=== PATIENT | female | born 1990 | race Caucasian/White ===

== ENCOUNTER 2017-10-28 18:53 | Emergency (ER) | payer SELFPAY ==
--- NOTE | 2017-10-28 19:44 | ER ---
Nurse's Notes [facility] Name: Raquel Sim Age: 27 yrs Sex: Female : 1990 Arrival Date: 10/28/2017 Time: 18:58 Bed 16 Private MD: None, None Diagnosis: Cutaneous abscess of buttock Presentation: 10/28 19:11 Presenting complaint: Patient states: Multiple abscesses to bilateral posterior thighs aj for 8 days. Transition of care: patient was not received from another setting of care. Onset of symptoms was October 20, 2017. Risk Assessment: Do you want to hurt yourself or someone else? Patient reports no desire to harm self or others. Initial Sepsis Screen: Does the patient meet any 2 criteria? HR > 90 bpm. Does the patient have a suspected source of infection? No. Patient's initial sepsis screen is negative. Care prior to arrival: None. 19:11 Method Of Arrival: Ambulatory aj 19:11 Acuity: DUANE 3 aj Triage Assessment: 19:12 General: Appears in no apparent distress. comfortable, Behavior is calm, cooperative, aj appropriate for age. Pain: Complains of pain in right hamstring and left hamstring. Neuro: Level of Consciousness is awake, alert, obeys commands, Oriented to person, place, time, situation, Appropriate for age. Respiratory: Airway is patent Respiratory effort is even, unlabored, Respiratory pattern is regular, symmetrical. Derm: Skin is intact, is healthy with good turgor, Skin is pink, warm \T\ dry. normal, Abscess located on right hamstring and left hamstring is quarter sized, was lanced by patient prior to arrival. 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 - Social history:: Smoking status: Patient/guardian denies using tobacco. - Ebola Screening: : Patient negative for fever greater than or equal to 101.5 degrees Fahrenheit, and additional compatible Ebola Virus Disease symptoms Patient denies exposure to infectious person Patient denies travel to an Ebola-affected area in the 21 days before illness onset No symptoms or risks identified at this time. Screenin:06 Abuse screen: Denies threats or abuse. Nutritional screening: No deficits noted. ea Tuberculosis screening: No symptoms or risk factors identified. Fall Risk None identified. Assessment: 19:57 General: Appears in no apparent distress. Behavior is calm, cooperative, appropriate ea for age. Pain: Denies pain. Neuro: Level of Consciousness is awake, alert, obeys commands, Oriented to person, place, time, situation. Cardiovascular: Patient's skin is warm and dry. Respiratory: Airway is patent Respiratory effort is even, unlabored, Respiratory pattern is regular, symmetrical. Derm: Abscess located on right hamstring and left hamstring is nickel sized, has no drainage, is red, is raised. 20:07 Reassessment: Patient and/or family updated on plan of care and expected duration. Pain ea level reassessed. Patient is alert, oriented x 3, equal unlabored respirations, skin warm/dry/pink. Discharge instructions given to patient, verbalized the understanding of instruction. Vital Signs: 19:12 BP 159 / 80; Pulse 100; Resp 20; Temp 99.9; Pulse Ox 98% on R/A; Weight 94.35 kg; aj Height 5 ft. 0 in. (152.40 cm); 20:08 BP 138 / 70; Pulse 90; Resp 18; Temp 98.7; Pulse Ox 100% ; ea 19:12 Body Mass Index 40.62 (94.35 kg, 152.40 cm) aj ED Course: 18:58 Patient arrived in ED. mr 18:58 None, None is Private Physician. mr 19:08 Feliz Arellano MD is Attending Physician. ps1 19:12 Triage completed. aj 19:12 Arm band placed on left wrist. Patient placed in an exam room. aj 19:17 Lor Stephens, RN is Primary Nurse. ea 19:30 Patient has correct armband on for positive identification. Bed in low position. Call ea light in reach. Side rails up X 1. 20:09 No provider procedures requiring assistance completed. IV discontinued, intact, ea bleeding controlled, No redness/swelling at site. Pressure dressing applied. 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 Exp: ea 11/29/2018. Lot #: [id number]. } Route: IM; Site: right deltoid; 20:07 Follow up: Response: No adverse reaction ea Outcome: 19:43 Discharge ordered by . ps1 20:08 Discharged to home ambulatory, with friend. ea 20:08 Condition: improved 20:08 Discharge instructions given to patient, Instructed on discharge instructions, follow up and referral plans. medication usage, Demonstrated understanding of instructions, follow-up care, medications, Prescriptions given X 4. 20:09 Patient left the ED. ea Signatures: Taylor Glover, Laura Amaya RN, Elena RN Feliz Buckley ea, MD MD ps1
--- NOTE | 2017-10-28 19:44 | EDPHYS ---
Physician Documentation [facility] Name: Raquel Sim Age: 27 yrs Sex: Female : 1990 Arrival Date: 10/28/2017 Time: 18:58 Bed 16 Private MD: None, None ED Physician Feliz Arellano HPI: 10/28 19:36 This 27 yrs old Female presents to ER via Ambulatory with complaints of ps1 Abscess. 19:36 patient got bit by insects a week a go and they became inflamed and then infected. She ps1 has 3 abscesses on the gluteal cleft bilaterally and lateral left posterior leg. They are red and inflamed. 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 They are painful and draining. Tetanus not UTD. . 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 - Social history:: Smoking status: Patient/guardian denies using tobacco. - Ebola Screening: : Patient negative for fever greater than or equal to 101.5 degrees Fahrenheit, and additional compatible Ebola Virus Disease symptoms Patient denies exposure to infectious person Patient denies travel to an Ebola-affected area in the 21 days before illness onset No symptoms or risks identified at this time. ROS: 19:36 Constitutional: Negative for fever, chills, and weight loss, Eyes: Negative for injury, ps1 pain, redness, and discharge, Cardiovascular: Negative for chest pain, palpitations, and edema, Respiratory: Negative for shortness of breath, cough, wheezing, and pleuritic chest pain, Abdomen/GI: Negative for abdominal pain, nausea, vomiting, diarrhea, and constipation, Back: Negative for injury and pain, MS/Extremity: Negative for injury and deformity. 19:36 Skin: Positive for abscess. Exam: 19:36 Constitutional: This is a well developed, well nourished patient who is awake, alert, ps1 and in no acute distress. Head/Face: Normocephalic, atraumatic. Eyes: Pupils equal round and reactive to light, extra-ocular motions intact. Lids and lashes normal. Conjunctiva and sclera are non-icteric and not injected. Chest/axilla: Normal chest wall appearance and motion. Nontender with no deformity. No lesions are appreciated. Cardiovascular: Regular rate and rhythm. No gallops, murmurs, or rubs. Normal PMI, no JVD. No pulse deficits. Respiratory: Lungs have equal breath sounds bilaterally, clear to auscultation and percussion. No rales, rhonchi or wheezes noted. No increased work of breathing, no retractions or nasal flaring. Abdomen/GI: Soft, non-tender, with normal bowel sounds. No distension or tympany. No guarding or rebound. No evidence of tenderness throughout. MS/ Extremity: Pulses equal, no cyanosis. Neurovascular intact. Full, normal range of motion. Neuro: Awake and alert, GCS 15, oriented to person, place, time, and situation. Cranial nerves II-XII grossly intact. Sensory grossly intact. 19:36 Skin: abscess, that is moderate sized, of the left leg and right leg and left hamstring, with drainage, with induration. Vital Signs: 19:12 BP 159 / 80; Pulse 100; Resp 20; Temp 99.9; Pulse Ox 98% on R/A; Weight 94.35 kg; aj Height 5 ft. 0 in. (152.40 cm); 20:08 BP 138 / 70; Pulse 90; Resp 18; Temp 98.7; Pulse Ox 100% ; ea 19:12 Body Mass Index 40.62 (94.35 kg, 152.40 cm) aj MDM: 19:36 Data reviewed: vital signs, nurses notes, and as a result, I will discharge patient. ps1 Counseling: I had a detailed discussion with the patient and/or guardian regarding: the historical points, exam findings, and any diagnostic results supporting the discharge/admit diagnosis. Special discussion:. ED course: Updated tetanus. draining abscess. Will discharge with keflex, bactrim, medrol, anaprox. Watchful waiting. . 19:43 Patient medically screened. 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 Exp: ea 11/29/2018. Lot #: [id number]. } Route: IM; Site: right deltoid; 20:07 Follow up: Response: No adverse reaction ea Disposition: 10/28/17 19:43 Discharged to Home. Impression: Cutaneous abscess of buttock. - Condition is Stable. - Discharge Instructions: Skin Abscess. - Prescriptions for Anaprox DS 550 mg Oral Tablet - take 1 tablet by ORAL route every 12 hours As needed; 20 tablet. Keflex 500 mg Oral Capsule - take 1 capsule by ORAL route every 8 hours for 10 days; 30 capsule. Medrol (Miguel) 4 mg Oral Tablets, Dose Pack - take 1 tablet by ORAL route as directed - follow package instructions; 1 packet. Bactrim DS 800- 160 mg Oral Tablet - take 1 tablet by ORAL route every 12 hours for 10 days; 20 tablet. - Medication Reconciliation Form, Thank You Letter, Antibiotic Education, Prescription Opioid Use form. - Follow up: Private Physician; When: As needed; Reason: Recheck today's complaints, Continuance of care, Re-evaluation by your physician. Follow up: Emergency Department; When: As needed; Reason: Fever > 102 F, Worsening of condition. - Problem is new. - Symptoms are unchanged. Signatures: Taylor Glover RN RN aj Antunez, Elena, RN RN ea Singer, Phillip, MD MD ps1 Corrections: (The following items were deleted from the chart) 20:09 19:43 10/28/2017 19:43 Discharged to Home. Impression: Cutaneous abscess of buttock. ea Condition is Stable. Forms are Medication Reconciliation Form, Thank You Letter, Antibiotic Education, Prescription Opioid Use. Follow up: Private Physician; When: As needed; Reason: Recheck today's complaints, Continuance of care, Re-evaluation by your physician. Follow up: Emergency Department; When: As needed; Reason: Fever > 102 F, Worsening of condition. Problem is new. Symptoms are unchanged. ps1
[2017-10-28] MEDS ORDERED: TETANUS & DIPHTHERIA TOX,ADULT 0.5 ML VIAL ONE (19:49)
[2017-10-28 20:21] VITALS: BP 138/70; TEMP 98.7; O2SAT 100
== END 2017-10-28 20:09 | disposition home or self-care (01) ==
LOC: ER 18:53
DX: L02.31 Cutaneous abscess of buttock (principal); Z23 Encounter for immunization
CPT/HCPCS: 90714; 99283

== ENCOUNTER 2024-01-31 07:59 | Emergency (ER) | payer OTHER, SELFPAY ==
--- OUTSIDE RECORDS SUMMARY | 2024-01-31 08:06 | XMS REPORT | Continuity of Care Document ---
Author Name Unknown Address [address] [facility] [address] [place] [address] [facility] thconnect Address [address] [facility]. 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 Role Phone Pcp, Patient Does Not Have A Primary Care Physic shubham MICHAEL VIRAMONTES Attending Clinician Unavailable Singh Vo MD Attending Clinician [phone] RENAE DURAN Attending Clinician Unava ilable Vitor eJnsen Attending Clinician [phone] GIA BROWN Attending Clinician Unavailable Gia Brown PA-C Attending Clinician [phone] Unknown, Attending Attending Clinician Unavailab SINGH Alvarenga Attending Clinician Unavailable SINGH VO Attending Clinician Unavailable JOJO THOMASON Attending Clinician Unavailab Jojo Carrasquillo Attending Clinician + [phone] Obey Krause MD Attending Clinician [phone] OBEY KRAUSE Attending Clinician Unavail able OBEY KRAUSE Attending Clinician Unavail able Lab, Ang - Db Attending Clinician Unavailable Vitor Jensen Attending Clinician [phone] VITOR KNOWLES Attending Clinician Unavailable TAYLOR BRADLEY Attending Clinician Unavailable Kirk ROJAS, Taylor Attending Clinician [phone] Sarah ANDRADE Attending Clinician Unavailable Sarah Hudson Attending Clinician [phone] Lexy Horton CNM Attending Clinician +- [phone] LEXY HORTON Attending Clinician Unavaila ble Doctor Unassigned, [place] Attending Clinician U navailable King JUSTA MD, James C Attending Clinician +[phone] MILO LEONE III Attending Clinician Unavailabl DOLLY Nicole Attending Clinician Unavailable Ebrahim MIS DIRECTOR, Dolly Attending Clinician [phone] ROBSON PEREZ Attending Clinician Unavailabl e Gregoria MIS DIRECTOR, Robson Attending Clinician [phone] MARILYN STRANGE Attending Clinician Unavail able Akinsilaurie WHCNP, Marilyn Olmos Attending Clinician + Ibjonny MIS DIRECTOR, Alireza F Attending Clinician [phone] Glen MIS DIRECTOR, Christiano Andrews Attending Clinician + [phone] [facility] Attending Clinician Unava ilable CHRISTIANO GONSALES Attending Clinician Unavailab mary kay Noonan MIS DIRECTOR, Eddie Attending Clinician [phone] EDDIE NOONAN Attending Clinician Unavailable Rosy Heredia DO Attending Clinician [phone] Yan MIS DIRECTOR, Yue Rios Attending Clinician [phone] JOJO THOMASON Admitting Clinician Unavailab mary kay Thomason MIS DIRECTOR, Jojo Olmos Admitting Clinician + [phone] OBEY KRAUSE Admitting Clinician Unavail able EDDIE NOONAN Admitting Clinician Unavailable Payers Payer Name Policy Type Policy Number Effective Date Expirati on Date Source 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: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 ON 9 [id number] 2023 00:00:00 Problems Condition Name Condition Details Condition Category Status Onset Date Resolution Date Last Treatment Date Treating Clinician Comments Source Brain cyst Brain cyst Disease Active 11-29 00:00: 00 [facility] Sore throat Sore throat Disease Active 11-29 00:00: 00 [facility] Anxiety and depression Anxiety and depression Disease Active 11-29 00:00: 00 [facility] History of abnormal cervical Pap smear History of abnormal cervical Pap smear Disease Active 08-08 00:00: 00 Overview: Formattin g of this note might be different from the original. 02/2017 ASCUS neg HPV 1 ASCUS neg HPV 3 ASCUS neg HPV, cotesting 1 year per ASCCP guideline s [facility] ASCUS with positive high risk HPV cervical ASCUS with positive high risk HPV cervical Disease Active 08-05 00:00: 00 Overview: Formattin g of this note might be different from the original. Needs repeat pap smear in 2021 [facility] UTI symptoms UTI symptoms Disease Active 2016-03 00:00: 00 [facility] Well woman exam Well woman exam Disease Active 2016-03 00:00: 00 [facility] Obesity (BMI 30-39.9) Obesity (BMI 30-39.9) Disease Active 2016-03 00:00: 00 [facility] History of depression History of depression Disease Active 2016-03 00:00: 00 [facility] History of bilateral tubal ligation History of bilateral tubal ligation Disease Active 03-28 00:00: 00 [facility] Contracept rossy management Contracept rossy management Disease Active 03-28 00:00: 00 [facility] Class 1 obesity due to excess calories with body mass index (BMI) of 33.0 to 33.9 in adult, unspecifie d whether serious comorbidit y present Class 1 obesity due to excess calories with body mass index (BMI) of 33.0 to 33.9 in adult, unspecifie d whether serious comorbidit y present Disease Active 6 00:00: 00 Overview: Formattin g of this note might be different from the original. 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 Needs repeat pap smear in 2021 [facility] Bartholin gland cyst Bartholin gland cyst Disease Resolve d 2-20 00:00: 00 2022-08-08 00:00:00 2022-08-08 13:06:57 [facility] UTI symptoms UTI symptoms Disease Resolve d 2016-03 2-13 00:00: 00 2022-08-08 00:00:00 2022-08-08 12:46:09 [facility] Screening examinatio n for STD (sexually transmitte d disease) Screening examinatio n for STD (sexually transmitte d disease) Disease Resolve d 2016-03 2-06 00:00: 00 2022-08-08 00:00:00 2022-08-08 12:46:06 [facility] Irregular menstrual cycle Irregular menstrual cycle Disease Resolve d 1-17 00:00: 00 2022-08-08 00:00:00 2022-08-08 13:07:01 [facility] Contracept rossy management Contracept rossy management Disease Resolve d - 00:00: 00 2022-08-08 00:00:00 2022-08-08 12:46:12 [facility] H/O tubal ligation H/O tubal ligation Disease Resolve d 2015-0 9-29 00:00: 00 2022-08-08 00:00:00 2022-08-08 12:46:00 [facility] Class 1 obesity due to excess calories with body mass index (BMI) of 33.0 to 33.9 in adult, unspecifie d whether serious comorbidit y present Class 1 obesity due to excess calories with body mass index (BMI) of 33.0 to 33.9 in adult, unspecifie d whether serious comorbidit y present Disease Resolve d 6-10 00:00: 00 2022-08-08 00:00:00 2022-08-08 12:46:13 [facility] Vaginal spotting Vaginal spotting Disease Resolve d 12-08 00:00: 00 2017-02-14 00:00:00 2021-09-25 00:42:26 [facility] Liveborn by Liveborn by Disease Resolve d 05-31 00:00: 00 2015-12-09 00:00:00 2015-12-09 14:06:14 [facility] Anemia affecting Anemia affecting Disease Resolve d 05-31 00:00: 00 2015-12-09 00:00:00 2015-12-09 14:06:16 [facility] 39 weeks gestation of 39 weeks gestation of Disease Resolve d 05-30 00:00: 00 2015-12-09 00:00:00 2015-12-09 14:06:06 [facility] Encounter for sterilizat ion Encounter for sterilizat ion Disease Resolve d 05-30 00:00: 00 2015-12-09 00:00:00 2015-12-09 14:06:12 [facility] Previous section complicati ng Previous section complicati ng Disease Resolve d 05-30 00:00: 00 2015-12-09 00:00:00 2015-12-09 14:06:10 [facility] Headache Headache Disease Resolve d 11-18 00:00: 00 2015-12-09 00:00:00 2021-09-25 00:37:33 [facility] Urinary tract infection, site not specified Urinary tract infection, site not specified Disease Resolve d 10-09 00:00: 00 2015-12-09 00:00:00 2021-09-25 00:37:03 [facility] Supervisio n of other high-risk Supervisio n of other high-risk Disease Resolve d 10-06 00:00: 00 2015-12-09 00:00:00 2021-09-25 00:37:00 [facility] Multiparit y Multiparit y Disease Resolve d 10-06 00:00: 00 2015-12-09 00:00:00 2015-12-09 14:05:51 [facility] Previous delivery affecting , antepartum Previous delivery affecting , antepartum Disease Resolve d 10-06 00:00: 00 2015-12-09 00:00:00 2021-09-25 00:37:00 [facility] Obesity complicati ng , childbirth , or puerperium , antepartum Obesity complicati ng , childbirth , or puerperium , antepartum Disease Resolve d 10-06 00:00: 00 2015-12-09 00:00:00 2021-09-25 00:37:00 [facility] History of depression History of depression Disease Resolve d 08-11 00:00: 00 2015-12-09 00:00:00 2015-12-09 14:05:28 [facility] Nexplanon removal Nexplanon removal Disease Resolve d 08-11 00:00: 00 2014-10-06 00:00:00 2014-10-06 11:08:32 [facility] BCP ( control pills) initiation BCP ( control pills) initiation Disease Resolve d 08-11 00:00: 00 2014-10-06 00:00:00 2014-10-06 11:08:34 [facility] Nexplanon in place Nexplanon in place Disease Resolve d 08-26 00:00: 00 2014-08-11 00:00:00 2021-09-25 00:30:47 [facility] examinatio n or test, negative result examinatio n or test, negative result Disease Resolve d 05-03 00:00: 00 2013-08-19 00:00:00 2013-08-19 11:14:37 [facility] Allergies, Adverse Reactions, Alerts Allergy Name Allergy Type Status Severity Reaction(s) Onset Date Inactive Date Treating Clinician Comments Source MORPHINE DRUG INGREDI Active N/V 08-29 00:00: 00 [facility] Morphine Propensi ty to adverse reaction s Active Nausea and/or Vomiting 08-29 00:00: 00 [facility] STRAWBER RY DRUG INGREDI Active Hives 08-07 00:00: 00 [facility] Strawber ry Propensi ty to adverse reaction s Active Hives 08-07 00:00: 00 [facility] Social History Social Habit Start Date Stop Date Quantity Comments Source History SDOH Alcohol Frequency [facility] History SDOH [facility] Alcohol Binge [facility] Alcoholic beverage intake 2023-05-31 00:00:00 2023-05-31 00:00:00 Current drinker of alcohol (finding) [facility] Alcohol intake 2023-05-31 00:00:00 2023-05-31 00:00:00 Current drinker of alcohol (finding) [facility] Exposure to SARS-CoV-2 (event) 2022-07-29 00:00:00 2022-08-08 12:55:00 Not sure [facility] Tobacco use and exposure 2022-08-08 00:00:00 2022-08-08 00:00:00 Smokeless tobacco non-user [facility] History of Social function 2022-08-08 00:00:00 2022-08-08 00:00:00 [facility] Alcohol Comment 2013-11-27 00:00:00 2013-11-27 00:00:00 socially [facility] Sex assigned at 1990 00:00:00 1990 00:00:00 [facility] Smoking Status Start Date Stop Date Source Never smoked tobacco [facility] Medications Ordered Medication Name Filled Medication Name Start Date Stop Date Current Medication? Ordering Clinician Indication Dosage Frequency Signature (SIG) Comments Components Source bromphenira mine-pseudo ephedrine-D M (BROMFED DM) 2-30-10 mg/5 mL syrup 07-02 00:00: 00 Yes [id number] 5mL Take 5 mL by mouth 3 (three) times daily as needed for Cold symptoms or Cough. [facility] cetirizine 10 mg tablet 07-02 00:00: 00 Yes [id number] 10mg Take 1 tablet by mouth in the morning. [facility] fluticasone propionate 50 mcg/actuati on nasal spray 07-02 00:00: 00 Yes [id number] 2{spray } Use 2 Sprays in each nostril in the morning. [facility] lidocaine 1% (PF) (XYLOCAINE) injection 04-11 14:55: 00 04-11 14:55 :00 No PRN, Starting on Sun04/11/23 at 0855, Until Sun04/11/23 at 0855, Routine, Intra-op [facility] LORazepam (ATIVAN) tablet 04-11 14:22: 56 04-11 14:22 :56 No Oral, PRN, Starting on Sun04/11/23 at 0822, Until Discontinu ed, Routine, Intra-op [facility] topiramate 25 mg tablet 2022-03 0 00:00: 00 Yes [id number] 4102 25mg Take 1 tablet by mouth in the morning and 1 tablet in the evening. [facility] acetaminoph en (TYLENOL) tablet 1,000 mg 11-28 07:00: 00 11-28 06:58 :00 No 1000mg 1,000 mg, Oral, ONCE, 1 dose, On Sun11/28/22 at 0200, LARRY [facility] methylPREDN ISolone (MEDROL, ERNESTO,) 4 mg tablets 11-28 00:00: 00 Yes [id number] Take by mouth SEE-INSTRU CTIONS. follow package directions [facility] mupirocin 2 % ointment 11-28 00:00: 00 Yes [id number] Apply to area(s) 3 (three) times daily. [facility] benzonatate 100 mg capsule 2021-03 00:00: 00 08-08 00:00 :00 No [id number] 100mg Take 1 capsule by mouth every 8 (eight) hours as needed for Cough. [facility] dexAMETHaso ne (DECADRON) tablet 16 mg 08-29 14:34: 00 08-29 14:39 :00 No [id number] 16mg [facility] mupirocin 2 % ointment 08-29 00:00: 00 08-08 00:00 :00 No [id number] Apply to area(s) 3 (three) times daily. [facility] ondansetron (ZOFRAN (PF)) injection 4 mg 10-27 03:30: 00 10-27 15:29 :00 No 4mg 4 mg, Slow IV Push, ONCE, 1 dose, 10/26/20 at 2230, LARRY [facility] morpHINE injection 4 mg 10-27 03:30: 00 10-27 02:27 :00 No 4mg 4 mg, Slow IV Push, ONCE, 1 dose, 10/26/20 at 2230, STAT [facility] iopamidol (ISOVUE 370-500 mL) injection 120 mL 10-27 01:41: 00 10-27 01:42 :00 No [id number] 120mL 120 mL, Intravenou s, ONCE, 1 dose, 10/26/20 at 2100, Routine [facility] ondansetron (ZOFRAN (PF)) injection 4 mg 10-27 01:30: 00 10-27 01:24 :00 No 4mg 4 mg, Slow IV Push, ONCE, 1 dose, 10/26/20 at 2030, LARRY [facility] NaCl 0.9% (NS) bolus infusion 1,000 mL 10-27 01:30: 00 10-27 02:27 :00 No 1000mL at 999 mL/hr, 1,000 mL, IV Piggyback, ONCE, 1 dose, 10/26/20 at 2030, STAT [facility] ondansetron (ZOFRAN-ODT ) disintegrat ing tablet 4 mg 10-27 01:15: 00 10-27 00:13 :00 No 4mg 4 mg, Oral, ONCE, 1 dose, Sun10/26/20 at 2014, Routine [facility] acetaminoph en (TYLENOL) tablet 1,000 mg 10-27 01:15: 00 10-27 00:12 :00 No 1000mg 1,000 mg, Oral, ONCE, 1 dose, Sun10/26/20 at 2014, LARRY [facility] ondansetron 4 mg disintegrat ing tablet 10-26 00:00: 00 08-08 00:00 :00 No [id number] 4mg Take 1 tablet by mouth every 8 (eight) hours as needed for Nausea and Vomiting (N/V). [facility] dicyclomine 20 mg tablet 10-26 00:00: 00 10-26 00:00 :00 No [id number] 20mg Take 1 tablet by mouth 4 (four) times daily for 7 days. [facility] propranolol 20 mg tablet 07-15 13:22: 46 07-15 00:00 :00 No 20mg Take 20 mg by mouth 2 (two) times daily. [facility] NaCl 0.9% (NS) bolus infusion 1,000 mL 03-19 18:15: 00 03-19 19:48 :00 No 1000mL at 999 mL/hr, 1,000 mL, IV Infusion, ONCE, 1 dose, Sun03/19/20 at 1215, LARRY [facility] ketorolac (TORADOL) injection 30 mg 03-19 18:00: 00 03-19 17:20 :00 No 30mg 30 mg, Slow IV Push, ONCE, 1 dose, Sun03/19/20 at 1200, LARRY
Fa culty member approving Restricted medication : EMERGENCY ROOM, [facility] albuterol 90 mcg/actuati on inhaler 03-19 00:00: 07-15 00:00 :00 No [id number] 2{puff} Inhale 2 Puffs every 4 (four) hours as needed for Wheezing or Shortness of Breath. [facility] ondansetron (ZOFRAN ODT) 4 mg disintegrat ing tablet 03-19 00:00: 00 07-15 00:00 :00 No [id number] 4mg Take 1 tablet by mouth every 8 (eight) hours as needed for Nausea and Vomiting (N/V). [facility] cephALEXin (KEFLEX) 500 mg capsule 03-19 00:00: 00 03-27 05:59 :00 No [id number] 500mg Take 1 capsule by mouth 2 (two) times daily for 7 days. [facility] ibuprofen (IBU) tablet 600 mg 08-01 14:30: 00 08-01 14:48 :00 No 600mg 600 mg, Oral, ONCE, 1 dose, 08/02/19 at 0930, [facility] acetaminoph en (TYLENOL) tablet 650 mg 08-01 14:15: 08-01 13:11 :00 No 650mg 650 mg, Oral, ONCE, 1 dose, 08/02/19 at 0915, [facility] ondansetron (ZOFRAN (PF)) injection 4 mg 08-01 14:15: 08-01 13:11 :00 No 4mg 4 mg, Slow IV Push, ONCE, 1 dose, 08/02/19 at 0915, [facility] cefTRIAXone (ROCEPHIN) 1,000 mg in NaCl 0.9% (NS) 50 mL MINI-BAG 08-01 14:15: 08-01 13:42 :00 No 1000mg 1,000 mg, IV Piggyback, ONCE, 1 dose, 08/02/19 at 0915, 50 mL
Reas on for Anti-Infec tive: Documented Infection< br>Documen skyla Infection Site: Urine
D uration of Therapy: 7 days [facility] NaCl 0.9% (NS) bolus infusion 1,000 mL 08-01 13:15: 00 08-01 14:49 :00 No 1000mL at 999 mL/hr, 1,000 mL, IV Infusion, ONCE, 1 dose, 08/02/19 at 0815, LARRY [facility] acetaminoph en-codeine (TYLENOL-CO DEINE #3) 300-30 mg tablet 08-01 00:00: 07-15 00:00 :00 No [id number] 1{tbl} Take 1 tablet by mouth every 4 (four) hours as needed for Pain (scale 1-3). [facility] ondansetron (ZOFRAN ODT) 4 mg disintegrat ing tablet 08-01 00:00: 00 07-15 00:00 :00 No [id number] 4mg Take 1 tablet by mouth every 8 (eight) hours as needed for Nausea and Vomiting (N/V). [facility] sulfamethox azole-trime thoprim 800-160 mg per tablet 08-01 00:00: 08-09 04:59 :00 No [id number] 1{tbl} Take 1 tablet by mouth every 12 (twelve) hours for 7 days. [facility] propranolol 20 mg tablet 07-31 22:31: 59 Yes 20mg Take 20 mg by mouth 2 (two) times daily. [facility] sulfamethox azole-trime thoprim 800-160 mg per tablet 07-31 00:00: 08-08 04:59 :00 No [id number] 1{tbl} Take 1 tablet by mouth every 12 (twelve) hours for 7 days. [facility] ondansetron 4 mg disintegrat ing tablet 08-07 00:00: 00 Yes [id number] 4mg Take 1 tablet by mouth every 8 (eight) hours as needed for Nausea and Vomiting (N/V). [facility] acetaminoph en-codeine 300-30 mg tablet 08-07 00:00: 08-01 00:00 :00 No [id number] 1{tbl} Take 1 tablet by mouth every 4 (four) hours as needed for Pain (scale 7-10). [facility] No known medications No [facility] No known medications No Un lenka it[facility] No known medications No Un lenka ity [facility] No known medications No Un lenka ity [facility] No known medications No Un lenka ity [facility] No known medications No Un lenka ity [facility] No known medications No Un lenka ity [facility] Immunizations Ordered Immunization Name Filled Immunization Name Date Status Comments Source PPD (TB) 2020-07-19 00:00:00 Completed [facility] PPD (TB) 2020-07-19 00:00:00 Completed [facility] PPD (TB) 2020-07-19 00:00:00 Completed [facility] PPD (TB) 2020-07-19 00:00:00 Completed [facility] PPD (TB) 2020-07-19 00:00:00 Completed [facility] PPD (TB) 2020-07-19 00:00:00 Completed [facility] PPD (TB) 2020-07-19 00:00:00 Completed [facility] PPD (TB) 2020-07-19 00:00:00 Completed [facility] PPD (TB) 2020-07-19 00:00:00 Completed [facility] PPD (TB) 2020-07-19 00:00:00 Completed [facility] PPD (TB) 2020-07-19 00:00:00 Completed [facility] PPD (TB) 2020-07-19 00:00:00 Completed [facility] PPD (TB) 2020-07-19 00:00:00 Completed [facility] PPD (TB) 2020-07-19 00:00:00 Completed [facility] PPD (TB) 2020-07-19 00:00:00 Completed [facility] PPD (TB) 2020-07-19 00:00:00 Completed [facility] PPD (TB) 2020-07-19 00:00:00 Completed [facility] PPD (TB) 2020-07-19 00:00:00 Completed [facility] PPD (TB) 2020-07-19 00:00:00 Completed [facility] PPD (TB) 2020-07-19 00:00:00 Completed [facility] Influenza Virus Vaccine Quad .5 mL IM 6+ MO (FLUZONE/FLULAVAL/FL UARIX) 2020-02-04 00:00:00 Completed Influenza Virus Vaccine Quad .5 mL IM 6+ MO 2020-02-04 00:00:00 Completed [facility] Influenza Virus Vaccine Quad .5 mL IM 6+ MO 2020-02-04 00:00:00 Completed [facility] Influenza Virus Vaccine Quad .5 mL IM 6+ MO 2020-02-04 00:00:00 Completed [facility] Influenza Virus Vaccine Quad .5 mL IM 6+ MO (FLUZONE/FLULAVAL/FL UARIX) 2020-02-04 00:00:00 Completed [facility] Influenza Virus Vaccine Quad .5 mL IM 6+ MO (FLUZONE/FLULAVAL/FL UARIX) 2020-02-04 00:00:00 Completed [facility] Influenza Virus Vaccine Quad .5 mL IM 6+ MO (FLUZONE/FLULAVAL/FL UARIX) 2020-02-04 00:00:00 Completed [facility] Hepatitis A Adult 2018-09-06 00:00:00 Completed TDAP 2018-09-06 00:00:00 Completed Varicella (varivax)(chicken pox) 2018-09-06 00:00:00 Completed Hepatitis A Adult 2018-09-06 00:00:00 Completed [facility] TDAP 2018-09-06 00:00:00 Completed [facility] Varicella (varivax)(chicken pox) 2018-09-06 00:00:00 Completed [facility] Hepatitis A Adult 2018-09-06 00:00:00 Completed [facility] TDAP 2018-09-06 00:00:00 Completed [facility] Varicella (varivax)(chicken pox) 2018-09-06 00:00:00 Completed [facility] Hepatitis A Adult 2018-09-06 00:00:00 Completed [facility] TDAP 2018-09-06 00:00:00 Completed [facility] Varicella (varivax)(chicken pox) 2018-09-06 00:00:00 Completed [facility] Hepatitis A Adult 2018-09-06 00:00:00 Completed [facility] TDAP 2018-09-06 00:00:00 Completed [facility] Varicella (varivax)(chicken pox) 2018-09-06 00:00:00 Completed [facility] Hepatitis A Adult 2018-09-06 00:00:00 Completed [facility] TDAP 2018-09-06 00:00:00 Completed [facility] Varicella (varivax)(chicken pox) 2018-09-06 00:00:00 Completed [facility] Hepatitis A Adult 2018-09-06 00:00:00 Completed [facility] TDAP 2018-09-06 00:00:00 Completed [facility] Varicella (varivax)(chicken pox) 2018-09-06 00:00:00 Completed [facility] HPV 2016-09-14 00:00:00 Completed [facility] HPV 2016-09-14 00:00:00 Completed [facility] HPV 2016-09-14 00:00:00 Completed [facility] HPV 2016-09-14 00:00:00 Completed [facility] HPV 2016-09-14 00:00:00 Completed HPV 2016-09-14 00:00:00 Completed [facility] HPV 2016-09-14 00:00:00 Completed [facility] HPV 2016-09-14 00:00:00 Completed [facility] HPV 2016-09-14 00:00:00 Completed [facility] HPV 2016-09-14 00:00:00 Completed [facility] HPV 2016-09-14 00:00:00 Completed [facility] HPV 2016-09-14 00:00:00 Completed [facility] HPV 2016-09-14 00:00:00 Completed [facility] HPV 2016-09-14 00:00:00 Completed [facility] HPV 2016-09-14 00:00:00 Completed [facility] HPV 2016-09-14 00:00:00 Completed [facility] HPV 2016-09-14 00:00:00 [facility] [facility] HPV 2016-09-14 00:00:00 Completed [facility] HPV 2016-09-14 00:00:00 Completed [facility] HPV 2016-09-14 00:00:00 Completed [facility] HPV 2016-09-14 00:00:00 Completed [facility] HPV 2016-09-14 00:00:00 Completed [facility] HPV 2016-09-14 00:00:00 Completed [facility] HPV 2016-09-14 00:00:00 Completed [facility] HPV 2016-09-14 00:00:00 Completed [facility] HPV 2016-09-14 00:00:00 Completed [facility] HPV 2016-09-14 00:00:00 Completed [facility] HPV 2016-09-14 00:00:00 Completed [facility] HPV 2016-09-14 00:00:00 Completed [facility] HPV 2016-05-15 00:00:00 Completed [facility] HPV 2016-05-15 00:00:00 Completed [facility] HPV 2016-05-15 00:00:00 Completed [facility] HPV 2016-05-15 00:00:00 Completed [facility] HPV 2016-05-15 00:00:00 Completed HPV 2016-05-15 00:00:00 Completed [facility] HPV 2016-05-15 00:00:00 Completed [facility] HPV 2016-05-15 00:00:00 Completed [facility] HPV 2016-05-15 00:00:00 Completed [facility] HPV 2016-05-15 00:00:00 Completed [facility] HPV 2016-05-15 00:00:00 Completed [facility] HPV 2016-05-15 00:00:00 Completed [facility] HPV 2016-05-15 00:00:00 Completed [facility] HPV 2016-05-15 00:00:00 Completed [facility] HPV 2016-05-15 00:00:00 Completed [facility] HPV 2016-05-15 00:00:00 Completed [facility] HPV 2016-05-15 00:00:00 Completed [facility] HPV 2016-05-15 00:00:00 Completed [facility] HPV 2016-05-15 00:00:00 Completed [facility] HPV 2016-05-15 00:00:00 Completed [facility] HPV 2016-05-15 00:00:00 Completed [facility] HPV 2016-05-15 00:00:00 Completed [facility] HPV 2016-05-15 00:00:00 Completed [facility] HPV 2016-05-15 00:00:00 Completed [facility] HPV 2016-05-15 00:00:00 Completed [facility] HPV 2016-05-15 00:00:00 Completed [facility] HPV 2016-05-15 00:00:00 Completed [facility] HPV 2016-05-15 00:00:00 Completed [facility] HPV 2016-05-15 00:00:00 Completed [facility] TDAP 2015-03-12 00:00:00 Completed TDAP 2015-03-12 00:00:00 Completed [facility] TDAP 2015-03-12 00:00:00 Completed [facility] TDAP 2015-03-12 00:00:00 Completed [facility] TDAP 2015-03-12 00:00:00 Completed [facility] TDAP 2015-03-12 00:00:00 Completed [facility] TDAP 2015-03-12 00:00:00 Completed [facility] Influenza Virus Vaccine - Whole 2014-12-25 00:00:00 Completed Influenza Virus Vaccine - Whole 2014-12-25 00:00:00 Completed [facility] Influenza Virus Vaccine - Whole 2014-12-25 00:00:00 Completed [facility] Influenza Virus Vaccine - Whole 2014-12-25 00:00:00 Completed [facility] Influenza Virus Vaccine - Whole 2014-12-25 00:00:00 Completed [facility] Influenza Virus Vaccine - Whole 2014-12-25 00:00:00 Completed [facility] Influenza Virus Vaccine - Whole 2014-12-25 00:00:00 Completed [facility] PPD (TB) 2014-10-06 00:00:00 Completed [facility] PPD (TB) 2014-10-06 00:00:00 Completed [facility] PPD (TB) 2014-10-06 00:00:00 Completed [facility] PPD (TB) 2014-10-06 00:00:00 Completed [facility] PPD (TB) 2014-10-06 00:00:00 Completed [facility] PPD (TB) 2014-10-06 00:00:00 Completed [facility] PPD (TB) 2014-10-06 00:00:00 Completed [facility] PPD (TB) 2014-10-06 00:00:00 Completed [facility] PPD (TB) 2014-10-06 00:00:00 Completed [facility] PPD (TB) 2014-10-06 00:00:00 Completed [facility] PPD (TB) 2014-10-06 00:00:00 Completed [facility] PPD (TB) 2014-10-06 00:00:00 Completed [facility] PPD (TB) 2014-10-06 00:00:00 Completed [facility] PPD (TB) 2014-10-06 00:00:00 Completed [facility] PPD (TB) 2014-10-06 00:00:00 Completed [facility] PPD (TB) 2014-10-06 00:00:00 Completed [facility] PPD (TB) 2014-10-06 00:00:00 Completed [facility] PPD (TB) 2014-10-06 00:00:00 Completed [facility] PPD (TB) 2014-10-06 00:00:00 Completed [facility] PPD (TB) 2014-10-06 00:00:00 Completed [facility] PPD (TB) 2014-10-06 00:00:00 Completed [facility] PPD (TB) 2014-10-06 00:00:00 Completed [facility] PPD (TB) 2014-10-06 00:00:00 Completed [facility] PPD (TB) 2014-10-06 00:00:00 Completed [facility] PPD (TB) 2014-10-06 00:00:00 Completed [facility] PPD (TB) 2014-10-06 00:00:00 Completed [facility] PPD (TB) 2014-10-06 00:00:00 Completed [facility] PPD (TB) 2014-10-06 00:00:00 Completed [facility] PPD (TB) 2014-10-06 00:00:00 Completed [facility] HPV 2014-06-03 00:00:00 Completed HPV 2014-06-03 00:00:00 Completed [facility] HPV 2014-06-03 00:00:00 Completed [facility] HPV 2014-06-03 00:00:00 Completed [facility] HPV 2014-06-03 00:00:00 Completed [facility] HPV 2014-06-03 00:00:00 Completed [facility] HPV 2014-06-03 00:00:00 Completed [facility] HPV 2014-03-17 00:00:00 Completed [facility] HPV 2014-03-17 00:00:00 Completed [facility] HPV 2014-03-17 00:00:00 Completed [facility] HPV 2014-03-17 00:00:00 Completed [facility] HPV 2014-03-17 00:00:00 Completed [facility] HPV 2014-03-17 00:00:00 Completed [facility] HPV 2014-03-17 00:00:00 Completed [facility] HPV 2014-03-17 00:00:00 Completed [facility] HPV 2014-03-17 00:00:00 Completed [facility] HPV 2014-03-17 00:00:00 Completed [facility] HPV 2014-03-17 00:00:00 Completed [facility] HPV 2014-03-17 00:00:00 Completed [facility] HPV 2014-03-17 00:00:00 Completed [facility] HPV 2014-03-17 00:00:00 Completed [facility] HPV 2014-03-17 00:00:00 Completed [facility] HPV 2014-03-17 00:00:00 Completed [facility] HPV 2014-03-17 00:00:00 Completed [facility] HPV 2014-03-17 00:00:00 Completed [facility] HPV 2014-03-17 00:00:00 Completed [facility] HPV 2014-03-17 00:00:00 Completed [facility] HPV 2014-03-17 00:00:00 Completed [facility] HPV 2014-03-17 00:00:00 Completed [facility] HPV 2014-03-17 00:00:00 Completed [facility] HPV 2014-03-17 00:00:00 Completed [facility] HPV 2014-03-17 00:00:00 Completed [facility] HPV 2014-03-17 00:00:00 Completed [facility] HPV 2014-03-17 00:00:00 Completed [facility] HPV 2014-03-17 00:00:00 Completed [facility] HPV 2014-03-17 00:00:00 Completed [facility] TDAP 2013-06-19 00:00:00 Completed [facility] TDAP 2013-06-19 00:00:00 Completed [facility] Tdap 2013-06-19 00:00:00 Completed [facility] TDAP 2013-06-19 00:00:00 Completed [facility] Tdap 2013-06-19 00:00:00 Completed [facility] Tdap 2013-06-19 00:00:00 Completed [facility] TDAP 2013-06-19 00:00:00 Completed [facility] TDAP 2013-06-19 00:00:00 Completed [facility] TDAP 2013-06-19 00:00:00 Completed [facility] TDAP 2013-06-19 00:00:00 Completed [facility] TDAP 2013-06-19 00:00:00 Completed [facility] TDAP 2013-06-19 00:00:00 Completed [facility] TDAP 2013-06-19 00:00:00 Completed [facility] TDAP 2013-06-19 00:00:00 Completed [facility] TDAP 2013-06-19 00:00:00 Completed [facility] TDAP 2013-06-19 00:00:00 Completed [facility] TDAP 2013-06-19 00:00:00 Completed [facility] TDAP 2013-06-19 00:00:00 Completed [facility] TDAP 2013-06-19 00:00:00 Completed [facility] TDAP 2013-06-19 00:00:00 Completed [facility] TDAP 2013-06-19 00:00:00 Completed [facility] TDAP 2013-06-19 00:00:00 Completed [facility] TDAP 2013-06-19 00:00:00 Completed [facility] TDAP 2013-06-19 00:00:00 Completed [facility] TDAP 2013-06-19 00:00:00 Completed [facility] Tdap 2013-06-19 00:00:00 Completed [facility] TDAP 2013-06-19 00:00:00 Completed [facility] TDAP 2013-06-19 00:00:00 Completed [facility] Tdap 2013-06-19 00:00:00 Completed [facility] HPV 2013-02-27 00:00:00 Completed Meningococcal Polysaccharide (groups A, C, Y and W-135) conjugate vaccine (MCV4P) 2013-02-27 00:00:00 Completed HPV 2013-02-27 00:00:00 Completed [facility] Meningococcal Polysaccharide (groups A, C, Y and W-135) conjugate vaccine (MCV4P) 2013-02-27 00:00:00 Completed [facility] HPV 2013-02-27 00:00:00 Completed [facility] Meningococcal Polysaccharide (groups A, C, Y and W-135) conjugate vaccine (MCV4P) 2013-02-27 00:00:00 Completed [facility] HPV 2013-02-27 00:00:00 Completed [facility] Meningococcal Polysaccharide (groups A, C, Y and W-135) conjugate vaccine (MCV4P) 2013-02-27 00:00:00 Completed [facility] HPV 2013-02-27 00:00:00 Completed [facility] Meningococcal Polysaccharide (groups A, C, Y and W-135) conjugate vaccine (MCV4P) 2013-02-27 00:00:00 Completed [facility] HPV 2013-02-27 00:00:00 Completed [facility] Meningococcal Polysaccharide (groups A, C, Y and W-135) conjugate vaccine (MCV4P) 2013-02-27 00:00:00 Completed [facility] HPV 2013-02-27 00:00:00 Completed [facility] Meningococcal Polysaccharide (groups A, C, Y and W-135) conjugate vaccine (MCV4P) 2013-02-27 00:00:00 Completed [facility] HPV 2006-10-25 00:00:00 Completed Meningococcal Polysaccharide (groups A, C, Y and W-135) conjugate vaccine (MCV4P) 2006-10-25 00:00:00 Completed TDAP 2006-10-25 00:00:00 Completed HPV 2006-10-25 00:00:00 Completed [facility] Meningococcal Polysaccharide (groups A, C, Y and W-135) conjugate vaccine (MCV4P) 2006-10-25 00:00:00 Completed [facility] TDAP 2006-10-25 00:00:00 Completed [facility] HPV 2006-10-25 00:00:00 Completed [facility] Meningococcal Polysaccharide (groups A, C, Y and W-135) conjugate vaccine (MCV4P) 2006-10-25 00:00:00 Completed [facility] TDAP 2006-10-25 00:00:00 Completed [facility] HPV 2006-10-25 00:00:00 Completed [facility] Meningococcal Polysaccharide (groups A, C, Y and W-135) conjugate vaccine (MCV4P) 2006-10-25 00:00:00 Completed [facility] TDAP 2006-10-25 00:00:00 Completed [facility] HPV 2006-10-25 00:00:00 Completed [facility] Meningococcal Polysaccharide (groups A, C, Y and W-135) conjugate vaccine (MCV4P) 2006-10-25 00:00:00 Completed [facility] TDAP 2006-10-25 00:00:00 Completed [facility] HPV 2006-10-25 00:00:00 Completed [facility] Meningococcal Polysaccharide (groups A, C, Y and W-135) conjugate vaccine (MCV4P) 2006-10-25 00:00:00 Completed [facility] TDAP 2006-10-25 00:00:00 Completed [facility] HPV 2006-10-25 00:00:00 Completed [facility] Meningococcal Polysaccharide (groups A, C, Y and W-135) conjugate vaccine (MCV4P) 2006-10-25 00:00:00 Completed [facility] TDAP 2006-10-25 00:00:00 Completed [facility] Varicella (varivax)(chicken pox) 1999-09-06 00:00:00 Completed Varicella (varivax)(chicken pox) 1999-09-06 00:00:00 Completed [facility] Varicella (varivax)(chicken pox) 1999-09-06 00:00:00 Completed [facility] Varicella (varivax)(chicken pox) 1999-09-06 00:00:00 Completed [facility] Varicella (varivax)(chicken pox) 1999-09-06 00:00:00 Completed [facility] Varicella (varivax)(chicken pox) 1999-09-06 00:00:00 Completed [facility] Varicella (varivax)(chicken pox) 1999-09-06 00:00:00 Completed [facility] Hep B, Adol or Pedi Dosage 1997-11-13 00:00:00 Completed Hep B, Adol or Pedi Dosage 1997-11-13 00:00:00 Completed [facility] Hep B, Adol or Pedi Dosage 1997-11-13 00:00:00 Completed [facility] Hep B, Adol or Pedi Dosage 1997-11-13 00:00:00 Completed [facility] Hep B, Adol or Pedi Dosage 1997-11-13 00:00:00 Completed [facility] Hep B, Adol or Pedi Dosage 1997-11-13 00:00:00 Completed [facility] Hep B, Adol or Pedi Dosage 1997-11-13 00:00:00 Completed [facility] Hep B, Adol or Pedi Dosage 1997-07-06 00:00:00 Completed Hep B, Adol or Pedi Dosage 1997-07-06 00:00:00 Completed [facility] Hep B, Adol or Pedi Dosage 1997-07-06 00:00:00 Completed [facility] Hep B, Adol or Pedi Dosage 1997-07-06 00:00:00 Completed [facility] Hep B, Adol or Pedi Dosage 1997-07-06 00:00:00 Completed [facility] Hep B, Adol or Pedi Dosage 1997-07-06 00:00:00 Completed [facility] Hep B, Adol or Pedi Dosage 1997-07-06 00:00:00 Completed [facility] DTaP, Unspecified Formulation 1996-11-06 00:00:00 Completed Hep B, Adol or Pedi Dosage 1996-11-06 00:00:00 Completed MMR 1996-11-06 00:00:00 Completed IPV 1996-11-06 00:00:00 Completed DTaP, Unspecified Formulation 1996-11-06 00:00:00 Completed [facility] Hep B, Adol or Pedi Dosage 1996-11-06 00:00:00 Completed [facility] MMR 1996-11-06 00:00:00 Completed [facility] IPV 1996-11-06 00:00:00 Completed [facility] DTaP, Unspecified Formulation 1996-11-06 00:00:00 Completed [facility] Hep B, Adol or Pedi Dosage 1996-11-06 00:00:00 Completed [facility] MMR 1996-11-06 00:00:00 Completed [facility] IPV 1996-11-06 00:00:00 Completed [facility] DTaP, Unspecified Formulation 1996-11-06 00:00:00 Completed [facility] Hep B, Adol or Pedi Dosage 1996-11-06 00:00:00 Completed [facility] MMR 1996-11-06 00:00:00 Completed [facility] IPV 1996-11-06 00:00:00 Completed [facility] DTaP, Unspecified Formulation 1996-11-06 00:00:00 Completed [facility] Hep B, Adol or Pedi Dosage 1996-11-06 00:00:00 Completed [facility] MMR 1996-11-06 00:00:00 Completed [facility] IPV 1996-11-06 00:00:00 Completed [facility] DTaP, Unspecified Formulation 1996-11-06 00:00:00 Completed [facility] Hep B, Adol or Pedi Dosage 1996-11-06 00:00:00 Completed [facility] MMR 1996-11-06 00:00:00 Completed [facility] IPV 1996-11-06 00:00:00 Completed [facility] DTaP, Unspecified Formulation 1996-11-06 00:00:00 Completed [facility] Hep B, Adol or Pedi Dosage 1996-11-06 00:00:00 Completed [facility] MMR 1996-11-06 00:00:00 Completed [facility] IPV 1996-11-06 00:00:00 Completed [facility] DTaP, Unspecified Formulation 1993-07-11 00:00:00 Completed Hib-HbOC 1993-07-11 00:00:00 Completed MMR 1993-07-11 00:00:00 Completed IPV 1993-07-11 00:00:00 Completed DTaP, Unspecified Formulation 1993-07-11 00:00:00 Completed [facility] Hib-HbOC 1993-07-11 00:00:00 Completed [facility] MMR 1993-07-11 00:00:00 Completed [facility] IPV 1993-07-11 00:00:00 Completed [facility] DTaP, Unspecified Formulation 1993-07-11 00:00:00 Completed [facility] Hib-HbOC 1993-07-11 00:00:00 Completed [facility] MMR 1993-07-11 00:00:00 Completed [facility] IPV 1993-07-11 00:00:00 Completed [facility] DTaP, Unspecified Formulation 1993-07-11 00:00:00 Completed [facility] Hib-HbOC 1993-07-11 00:00:00 Completed [facility] MMR 1993-07-11 00:00:00 Completed [facility] IPV 1993-07-11 00:00:00 Completed [facility] DTaP, Unspecified Formulation 1993-07-11 00:00:00 Completed [facility] Hib-HbOC 1993-07-11 00:00:00 Completed [facility] MMR 1993-07-11 00:00:00 Completed [facility] IPV 1993-07-11 00:00:00 Completed [facility] DTaP, Unspecified Formulation 1993-07-11 00:00:00 Completed [facility] Hib-HbOC 1993-07-11 00:00:00 Completed [facility] MMR 1993-07-11 00:00:00 Completed [facility] IPV 1993-07-11 00:00:00 Completed [facility] DTaP, Unspecified Formulation 1993-07-11 00:00:00 Completed [facility] Hib-HbOC 1993-07-11 00:00:00 Completed [facility] MMR 1993-07-11 00:00:00 Completed [facility] IPV 1993-07-11 00:00:00 Completed [facility] DTaP, Unspecified Formulation 1992 00:00:00 Completed Hib-HbOC 1992 00:00:00 Completed DTaP, Unspecified Formulation 1992 00:00:00 Completed [facility] Hib-HbOC 1992 00:00:00 Completed [facility] DTaP, Unspecified Formulation 1992 00:00:00 Completed [facility] Hib-HbOC 1992 00:00:00 Completed [facility] DTaP, Unspecified Formulation 1992 00:00:00 Completed [facility] Hib-HbOC 1992 00:00:00 Completed [facility] DTaP, Unspecified Formulation 1992 00:00:00 Completed [facility] Hib-HbOC 1992 00:00:00 Completed [facility] DTaP, Unspecified Formulation 1992 00:00:00 Completed [facility] Hib-HbOC 1992 00:00:00 Completed [facility] DTaP, Unspecified Formulation 1992 00:00:00 Completed [facility] Hib-HbOC 1992 00:00:00 Completed [facility] DTaP, Unspecified Formulation 1992 00:00:00 Completed Hib-HbOC 1992 00:00:00 Completed IPV 1992 00:00:00 Completed DTaP, Unspecified Formulation 1992 00:00:00 Completed [facility] Hib-HbOC 1992 00:00:00 Completed [facility] IPV 1992 00:00:00 Completed [facility] DTaP, Unspecified Formulation 1992 00:00:00 Completed [facility] Hib-HbOC 1992 00:00:00 Completed [facility] IPV 1992 00:00:00 Completed [facility] DTaP, Unspecified Formulation 1992 00:00:00 Completed [facility] Hib-HbOC 1992 00:00:00 Completed [facility] IPV 1992 00:00:00 Completed [facility] DTaP, Unspecified Formulation 1992 00:00:00 Completed [facility] Hib-HbOC 1992 00:00:00 Completed [facility] IPV 1992 00:00:00 Completed [facility] DTaP, Unspecified Formulation 1992 00:00:00 Completed [facility] Hib-HbOC 1992 00:00:00 Completed [facility] IPV 1992 00:00:00 Completed [facility] DTaP, Unspecified Formulation 1992 00:00:00 Completed [facility] Hib-HbOC 1992 00:00:00 Completed [facility] IPV 1992 00:00:00 Completed [facility] IPV 1992 00:00:00 Completed IPV 1992 00:00:00 Completed [facility] IPV 1992 00:00:00 Completed [facility] IPV 1992 00:00:00 Completed [facility] IPV 1992 00:00:00 Completed [facility] IPV 1992 00:00:00 Completed [facility] IPV 1992 00:00:00 Completed [facility] DTaP, Unspecified Formulation 1992 00:00:00 Completed Hib-HbOC 1992 00:00:00 Completed DTaP, Unspecified Formulation 1992 00:00:00 Completed [facility] Hib-HbOC 1992 00:00:00 Completed [facility] DTaP, Unspecified Formulation 1992 00:00:00 Completed [facility] Hib-HbOC 1992 00:00:00 Completed [facility] DTaP, Unspecified Formulation 1992 00:00:00 Completed [facility] Hib-HbOC 1992 00:00:00 Completed [facility] DTaP, Unspecified Formulation 1992 00:00:00 Completed [facility] Hib-HbOC 1992 00:00:00 Completed [facility] DTaP, Unspecified Formulation 1992 00:00:00 Completed [facility] Hib-HbOC 1992 00:00:00 Completed [facility] DTaP, Unspecified Formulation 1992 00:00:00 Completed [facility] Hib-HbOC 1992 00:00:00 Completed [facility] Hib-HbOC Unknown Completed [facility] HPV Unknown Completed [facility] Meningococcal Polysaccharide (groups A, C, Y and W-135) conjugate vaccine (MCV4P) Unknown Completed [facility] MMR Unknown Completed [facility] IPV Unknown Completed [facility] TDAP Unknown Completed [facility] Varicella (varivax)(chicken pox) Unknown Completed [facility] PPD (TB) Unknown Completed [facility] HPV Unknown Completed [facility] PPD (TB) Unknown Completed [facility] DTaP, Unspecified Formulation Unknown Completed [facility] Influenza Virus Vaccine Quad .5 mL IM 6+ MO (FLUZONE/FLULAVAL/FL UARIX) Unknown Completed [facility] Influenza Virus Vaccine - Whole Unknown [facility]pleted [facility], Adol or Pedi Dosage Unknown Completed [facility] Hib-HbOC Unknown Completed [facility] Meningococcal Polysaccharide (groups A, C, Y and W-135) conjugate vaccine (MCV4P) Unknown Completed [facility] MMR Unknown Completed [facility] IPV Unknown Completed [facility] TDAP Unknown Completed [facility] Varicella (varivax)(chicken pox) Unknown Completed [facility] PPD (TB) Unknown Completed [facility] HPV Unknown Completed [facility] PPD (TB) Unknown Completed [facility] DTaP, Unspecified Formulation Unknown Completed [facility] Influenza Virus Vaccine Quad .5 mL IM 6+ MO (FLUZONE/FLULAVAL/FL UARIX) Unknown Completed [facility] Influenza Virus Vaccine - Whole Unknown [facility]pleted [facility], [facility] or Pedi Dosage Unknown Completed [facility] Hib-HbOC Unknown Completed [facility] Meningococcal Polysaccharide (groups A, C, Y and W-135) conjugate vaccine (MCV4P) Unknown Completed [facility] MMR Unknown Completed [facility] IPV Unknown Completed [facility] TDAP Unknown Completed [facility] Varicella (varivax)(chicken pox) Unknown Completed [facility] PPD (TB) Unknown Completed [facility] HPV Unknown Completed [facility] PPD (TB) Unknown Completed [facility] DTaP, Unspecified Formulation Unknown Completed [facility] Influenza Virus Vaccine Quad .5 mL IM 6+ MO (FLUZONE/FLULAVAL/FL UARIX) Unknown Completed [facility] Influenza Virus Vaccine - Whole Unknown Completed [facility], Adol or Pedi Dosage Unknown Completed [facility] Hib-HbOC Unknown Completed [facility] Meningococcal Polysaccharide (groups A, C, Y and W-135) conjugate vaccine (MCV4P) Unknown Completed [facility] MMR Unknown Completed [facility] IPV Unknown Completed [facility] TDAP Unknown Completed [facility] Varicella (varivax)(chicken pox) Unknown Completed [facility] PPD (TB) Unknown Completed [facility] HPV Unknown Completed [facility] PPD (TB) Unknown Completed [facility] DTaP, Unspecified Formulation Unknown Completed [facility] Influenza Virus Vaccine Quad .5 mL IM 6+ MO (FLUZONE/FLULAVAL/FL UARIX) Unknown Completed [facility] Influenza Virus Vaccine - Whole Unknown Completed [facility], Adol or Pedi Dosage Unknown Completed [facility] Hib-HbOC Unknown Completed [facility] Meningococcal Polysaccharide (groups A, C, Y and W-135) conjugate vaccine (MCV4P) Unknown Completed [facility] MMR Unknown Completed [facility] IPV Unknown Completed [facility] TDAP Unknown Completed [facility] Varicella (varivax)(chicken pox) Unknown Completed [facility] PPD (TB) Unknown Completed [facility] HPV Unknown Completed [facility] PPD (TB) Unknown Completed [facility] DTaP, Unspecified Formulation Unknown Completed [facility] Influenza Virus Vaccine Quad .5 mL IM 6+ MO (FLUZONE/FLULAVAL/FL UARIX) Unknown Completed [facility] Influenza Virus Vaccine - Whole Unknown Completed [facility], Adol or Pedi Dosage Unknown Completed [facility] Hib-HbOC Unknown Completed [facility] Meningococcal Polysaccharide (groups A, C, Y and W-135) conjugate vaccine (MCV4P) Unknown Completed [facility] MMR Unknown Completed [facility] IPV Unknown Completed [facility] TDAP Unknown Completed [facility] Varicella (varivax)(chicken pox) Unknown Completed [facility] PPD (TB) Unknown Completed [facility] HPV Unknown Completed [facility] DTaP, Unspecified Formulation Unknown Completed [facility] Influenza Virus Vaccine Quad .5 mL IM 6+ MO (FLUZONE/FLULAVAL/FL UARIX) Unknown Completed [facility] Influenza Virus Vaccine - Whole Unknown Completed [facility], Adol or Pedi Dosage Unknown Completed [facility] Hib-HbOC Unknown Completed [facility] Meningococcal Polysaccharide (groups A, C, Y and W-135) conjugate vaccine (MCV4P) Unknown Completed [facility] MMR Unknown Completed [facility] IPV Unknown Completed [facility] TDAP Unknown Completed [facility] Varicella (varivax)(chicken pox) Unknown Completed [facility] PPD (TB) Unknown Completed [facility] HPV Unknown Completed [facility] PPD (TB) Unknown Completed [facility] DTaP, Unspecified Formulation Unknown Completed [facility] Influenza Virus Vaccine Quad .5 mL IM 6+ MO (FLUZONE/FLULAVAL/FL UARIX) Unknown Completed [facility] Influenza Virus Vaccine - Whole Unknown Completed [facility], Adol or Pedi Dosage Unknown Completed [facility] Hib-HbOC Unknown Completed [facility] Meningococcal Polysaccharide (groups A, C, Y and W-135) conjugate vaccine (MCV4P) Unknown Completed [facility] MMR Unknown Completed [facility] IPV Unknown Completed [facility] TDAP Unknown Completed [facility] Varicella (varivax)(chicken pox) Unknown Completed [facility] PPD (TB) Unknown Completed [facility] HPV Unknown Completed [facility] PPD (TB) Unknown Completed [facility] DTaP, Unspecified Formulation Unknown Completed [facility] Influenza Virus Vaccine Quad .5 mL IM 6+ MO (FLUZONE/FLULAVAL/FL UARIX) Unknown Completed [facility] Influenza Virus Vaccine - Whole Unknown Completed [facility] Adult [facility], Adol or Pedi Dosage Unknown Completed [facility] Hib-HbOC Unknown Completed [facility] Meningococcal Polysaccharide (groups A, C, Y and W-135) conjugate vaccine (MCV4P) Unknown Completed [facility] MMR Unknown Completed [facility] IPV Unknown Completed [facility] TDAP Unknown Completed [facility] Varicella (varivax)(chicken pox) Unknown Completed [facility] PPD (TB) Unknown Completed [facility] HPV Unknown Completed [facility] PPD (TB) Unknown Completed [facility] DTaP, Unspecified Formulation Unknown Completed [facility] Influenza Virus Vaccine Quad .5 mL IM 6+ MO (FLUZONE/FLULAVAL/FL UARIX) Unknown Completed [facility] Influenza Virus Vaccine - Whole Unknown Completed [facility], Adol or Pedi Dosage Unknown Completed [facility] Hib-HbOC Unknown Completed [facility] Meningococcal Polysaccharide (groups A, C, Y and W-135) conjugate vaccine (MCV4P) Unknown Completed [facility] MMR Unknown Completed [facility] IPV Unknown Completed [facility] TDAP Unknown Completed [facility] Varicella (varivax)(chicken pox) Unknown Completed [facility] TDAP Unknown Completed [facility] PPD (TB) Unknown Completed [facility] HPV Unknown Completed [facility] PPD (TB) Unknown Completed [facility] DTaP, Unspecified Formulation Unknown Completed [facility] Influenza Virus Vaccine Quad .5 mL IM 6+ MO (FLUZONE/FLULAVAL/FL UARIX) Unknown Completed [facility] Influenza Virus Vaccine - Whole Unknown Completed [facility] Adult [facility], Adol or Pedi Dosage Unknown Completed [facility] Hib-HbOC Unknown Completed [facility] Meningococcal Polysaccharide (groups A, C, Y and W-135) conjugate vaccine (MCV4P) Unknown Completed [facility] MMR Unknown Completed [facility] IPV Unknown Completed [facility] Varicella (varivax)(chicken pox) Unknown Completed [facility] TDAP Unknown Completed [facility] PPD (TB) Unknown Completed [facility] HPV Unknown Completed [facility] PPD (TB) Unknown Completed [facility] DTaP, Unspecified Formulation Unknown Completed [facility] Influenza Virus Vaccine Quad .5 mL IM 6+ MO (FLUZONE/FLULAVAL/FL UARIX) Unknown Completed [facility] Influenza Virus Vaccine - Whole Unknown Completed [facility], Adol or Pedi Dosage Unknown Completed [facility] Hib-HbOC Unknown Completed [facility] Meningococcal Polysaccharide (groups A, C, Y and W-135) conjugate vaccine (MCV4P) Unknown Completed [facility] MMR Unknown Completed [facility] IPV Unknown Completed [facility] Varicella (varivax)(chicken pox) Unknown Completed [facility] PPD (TB) Unknown Completed [facility] PPD (TB) Unknown Completed [facility] Influenza Virus Vaccine Quad .5 mL IM 6+ MO (FLUZONE/FLULAVAL/FL UARIX) Unknown Completed [facility] Influenza Virus Vaccine - Whole Unknown Completed [facility] Adult [facility] Com[facility] HPV Unknown Completed [facility] DTaP, Unspecified Formulation Unknown Completed [facility] Hep B, Adol or Pedi Dosage Unknown Completed [facility] Hib-HbOC Unknown Completed [facility] Meningococcal Polysaccharide (groups A, C, Y and W-135) conjugate vaccine (MCV4P) Unknown Completed [facility] MMR Unknown Completed [facility] IPV Unknown Completed [facility] Varicella (varivax)(chicken pox) Unknown Completed [facility] PPD (TB) Unknown Completed [facility] PPD (TB) Unknown Completed [facility] Influenza Virus Vaccine Quad .5 mL IM 6+ MO (FLUZONE/FLULAVAL/FL UARIX) Unknown Completed [facility] Influenza Virus Vaccine - Whole Unknown Completed [facility] Adult [facility] Completed [facility] HPV Unknown Completed [facility] DTaP, Unspecified Formulation Unknown Completed [facility] Hep B, Adol or Pedi Dosage Unknown Completed [facility] Hib-HbOC Unknown Completed [facility] Meningococcal Polysaccharide (groups A, C, Y and W-135) conjugate vaccine (MCV4P) Unknown Completed [facility] MMR Unknown Completed [facility] IPV Unknown Completed [facility] Varicella (varivax)(chicken pox) Unknown Completed [facility] TDAP Unknown Completed [facility] PPD (TB) Unknown Completed [facility] HPV Unknown Completed [facility] PPD (TB) Unknown Completed [facility] DTaP, Unspecified Formulation Unknown Completed [facility] Influenza Virus Vaccine Quad .5 mL IM 6+ MO (FLUZONE/FLULAVAL/FL UARIX) Unknown Completed [facility] Influenza Virus Vaccine - Whole Unknown Completed [facility] Adult [facility], Adol or Pedi Dosage Unknown Completed [facility] Hib-HbOC Unknown Completed [facility] Meningococcal Polysaccharide (groups A, C, Y and W-135) conjugate vaccine (MCV4P) Unknown Completed [facility] MMR Unknown Completed [facility] IPV Unknown Completed [facility] Varicella (varivax)(chicken pox) Unknown Completed [facility] PPD (TB) Unknown Completed [facility] PPD (TB) Unknown Completed [facility] Influenza Virus Vaccine Quad .5 mL IM 6+ MO (FLUZONE/FLULAVAL/FL UARIX) Unknown Completed [facility] Influenza Virus Vaccine - Whole Unknown Completed [facility] HPV Unknown Completed [facility] DTaP, Unspecified Formulation Unknown Completed [facility] Hep B, Adol or Pedi Dosage Unknown Completed [facility] Hib-HbOC Unknown Completed [facility] Meningococcal Polysaccharide (groups A, C, Y and W-135) conjugate vaccine (MCV4P) Unknown Completed [facility] MMR Unknown Completed [facility] IPV Unknown Completed [facility] Varicella (varivax)(chicken pox) Unknown Completed [facility] TDAP Unknown Completed [facility] PPD (TB) Unknown Completed [facility] HPV Unknown Completed [facility] PPD (TB) Unknown Completed [facility] DTaP, Unspecified Formulation Unknown Completed [facility] Influenza Virus Vaccine Quad .5 mL IM 6+ MO (FLUZONE/FLULAVAL/FL UARIX) Unknown Completed [facility] Influenza Virus Vaccine - Whole Unknown Completed [facility] A Adult [facility] B, Adol or Pedi Dosage Unknown Completed [facility] Hib-HbOC Unknown Completed [facility] Meningococcal Polysaccharide (groups A, C, Y and W-135) conjugate vaccine (MCV4P) Unknown Completed [facility] MMR Unknown Completed [facility] IPV Unknown Completed [facility] Varicella (varivax)(chicken pox) Unknown Completed [facility] TDAP Unknown Completed [facility] PPD (TB) Unknown Completed [facility] HPV Unknown Completed [facility] PPD (TB) Unknown Completed [facility] DTaP, Unspecified Formulation Unknown Completed [facility] Influenza Virus Vaccine Quad .5 mL IM 6+ MO (FLUZONE/FLULAVAL/FL UARIX) Unknown Completed [facility] Influenza Virus Vaccine - Whole Unknown Completed [facility] Hepatitis A Adult Unknown Completed Un [facility] Hep B, Adol or Pedi Dosage Unknown Completed [facility] Hib-HbOC Unknown Completed [facility] Meningococcal Polysaccharide (groups A, C, Y and W-135) conjugate vaccine (MCV4P) Unknown Completed [facility] MMR Unknown Completed [facility] IPV Unknown Completed [facility] Varicella (varivax)(chicken pox) Unknown Completed [facility] PPD (TB) Unknown Completed [facility] PPD (TB) Unknown Completed [facility] DTaP, Unspecified Formulation Unknown Completed [facility] Influenza Virus Vaccine Quad .5 mL IM 6+ MO (FLUZONE/FLULAVAL/FL UARIX) Unknown Completed [facility] Influenza Virus Vaccine - Whole Unknown Completed [facility] Adult [facility], Adol or Pedi Dosage Unknown Completed [facility] Vital Signs Vital Name Observation Time Observation Value Comments S ource Systolic blood pressure 2023-07-03 18:35:00 116 mm[Hg] [facility] Diastolic blood pressure 2023-07-03 18:35:00 72 mm[Hg] [facility] Heart rate 2023-07-03 18:35:00 89 /min [facility] Body temperature 2023-07-03 18:35:00 36.5 Rosina [facility] Respiratory rate 2023-07-03 18:35:00 18 /min [facility] Body weight 2023-07-03 18:35:00 76.522 kg [facility] BMI 2023-07-03 18:35:00 32.95 kg/m2 [facility] Oxygen saturation in Arterial blood by Pulse oximetry 2023-07-03 18:35:00 98 /min [facility] Body height 2023-05-31 20:24:00 152.4 cm [facility] Body weight 2023-05-31 20:24:00 80.151 kg [facility] BMI 2023-05-31 20:24:00 34.51 kg/m2 [facility] Systolic blood pressure 2023-04-11 15:25:00 126 mm[Hg] [facility] Diastolic blood pressure 2023-04-11 15:25:00 81 mm[Hg] [facility] Heart rate 2023-04-11 15:25:00 63 /min [facility] Respiratory rate 2023-04-11 15:25:00 17 /min [facility] Oxygen saturation in Arterial blood by Pulse oximetry 2023-04-11 15:25:00 97 /min [facility] Body height 2023-04-11 14:10:00 152.4 cm [facility] Body weight 2023-04-11 14:10:00 80.74 kg [facility] BMI 2023-04-11 14:10:00 34.76 kg/m2 [facility] Systolic blood pressure 2023-01-11 15:21:00 132 mm[Hg] [facility] Diastolic blood pressure 2023-01-11 15:21:00 89 mm[Hg] [facility] Heart rate 2023-01-11 15:21:00 84 /min [facility] Body height 2023-01-11 15:21:00 152.4 cm [facility] Body weight 2023-01-11 15:21:00 80.74 kg [facility] BMI 2023-01-11 15:21:00 34.76 kg/m2 [facility] Systolic blood pressure 2022-12-29 13:04:00 135 mm[Hg] [facility] Diastolic blood pressure 2022-12-29 13:04:00 87 mm[Hg] [facility] Heart rate 2022-12-29 13:04:00 90 /min [facility] Respiratory rate 2022-12-29 13:04:00 18 /min [facility] Body height 2022-12-29 13:04:00 152.4 cm [facility] Body weight 2022-12-29 13:04:00 79.833 kg [facility] BMI 2022-12-29 13:04:00 34.37 kg/m2 [facility] Oxygen saturation in Arterial blood by Pulse oximetry 2022-12-29 13:04:00 100 /min [facility] Systolic blood pressure 2022-11-29 13:51:00 138 mm[Hg] [facility] Diastolic blood pressure 2022-11-29 13:51:00 85 mm[Hg] General acute hospital Heart rate 2022-11-29 13:51:00 60 /min [facility] Body temperature 2022-11-29 13:51:00 36.44 Rosina [facility] Body height 2022-11-29 13:51:00 152.4 cm [facility] Body weight 2022-11-29 13:51:00 75.978 kg [facility] BMI 2022-11-29 13:51:00 32.71 kg/m2 [facility] Oxygen saturation in Arterial blood by Pulse oximetry 2022-11-29 13:51:00 100 /min General acute hospital Systolic blood pressure 2022-11-28 21:57:00 132 mm[Hg] General acute hospital Diastolic blood pressure 2022-11-28 21:57:00 88 mm[Hg] General acute hospital Heart rate 2022-11-28 21:57:00 66 /min [facility] Body temperature 2022-11-28 21:57:00 37.5 Rosina [facility] Respiratory rate 2022-11-28 21:57:00 14 /min [facility] Body height 2022-11-28 21:57:00 152.4 cm [facility] Body weight 2022-11-28 21:57:00 76.204 kg [facility] BMI 2022-11-28 21:57:00 32.81 [facility]2 [facility] in Arterial blood by Pulse oximetry 2022-11-28 21:57:00 100 /min General acute hospital Body temperature 2022-11-28 08:00:00 38.44 Rosina [facility] Systolic blood pressure 2022-11-28 06:27:00 127 mm[Hg] General acute hospital Diastolic blood pressure 2022-11-28 06:27:00 83 mm[Hg] General acute hospital Heart rate 2022-11-28 06:27:00 98 /min [facility] Respiratory rate 2022-11-28 06:27:00 18 /min [facility] Body height 2022-11-28 06:27:00 152.4 cm [facility] Body weight 2022-11-28 06:27:00 76.204 kg General acute hospital BMI 2022-11-28 06:27:00 32.81 kg/m2 General acute hospital Oxygen saturation in Arterial blood by Pulse oximetry 2022-11-28 06:27:00 99 /min General acute hospital Systolic blood pressure 2022-08-08 17:55:00 139 mm[Hg] General acute hospital Diastolic blood pressure 2022-08-08 17:55:00 75 mm[Hg] General acute hospital Heart rate 2022-08-08 17:55:00 59 /min [facility] Body temperature 2022-08-08 17:55:00 36.67 Rosina [facility] Respiratory rate 2022-08-08 17:55:00 18 /min [facility] Body height 2022-08-08 17:55:00 152.4 cm [facility] Body weight 2022-08-08 17:55:00 78.529 kg General acute hospital BMI 2022-08-08 17:55:00 33.81 kg/m2 General acute hospital Systolic blood pressure 2022-07-28 19:28:00 126 mm[Hg] General acute hospital Diastolic blood pressure 2022-07-28 19:28:00 82 mm[Hg] General acute hospital Heart rate 2022-07-28 19:28:00 71 /min [facility] Body temperature 2022-07-28 19:28:00 36.89 Rosina [facility] Respiratory rate 2022-07-28 19:28:00 14 /min [facility] Body height 2022-07-28 19:28:00 152.4 cm [facility] Body weight 2022-07-28 19:28:00 77.474 kg [facility] BMI 2022-07-28 19:28:00 33.36 kg/m2 [facility] Oxygen saturation in Arterial blood by Pulse oximetry 2022-07-28 19:28:00 98 /min General acute hospital Systolic blood pressure 2022-03-10 18:02:00 123 mm[Hg] General acute hospital Diastolic blood pressure 2022-03-10 18:02:00 85 mm[Hg] General acute hospital Heart rate 2022-03-10 18:02:00 86 /min [facility] Body temperature 2022-03-10 18:02:00 36.83 Rosina [facility] Respiratory rate 2022-03-10 18:02:00 16 /min [facility] Body height 2022-03-10 18:02:00 152.4 cm [facility] Body weight 2022-03-10 18:02:00 82.283 kg General acute hospital BMI 2022-03-10 18:02:00 35.43 kg/m2 General acute hospital Oxygen saturation in Arterial blood by Pulse oximetry 2022-03-10 18:02:00 98 /min General acute hospital Systolic blood pressure 2021-11-09 19:29:00 117 mm[Hg] General acute hospital Diastolic blood pressure 2021-11-09 19:29:00 73 mm[Hg] General acute hospital Heart rate 2021-11-09 19:29:00 74 /min [facility] Body temperature 2021-11-09 19:29:00 37.22 Rosina [facility] Respiratory rate 2021-11-09 19:29:00 18 /min [facility] Body height 2021-11-09 19:29:00 152.4 cm [facility] Body weight 2021-11-09 19:29:00 84.879 kg General acute hospital BMI 2021-11-09 19:29:00 36.55 kg/m2 General acute hospital Oxygen saturation in Arterial blood by Pulse oximetry 2021-11-09 19:29:00 98 /min General acute hospital Systolic blood pressure 2021-08-29 14:19:00 120 mm[Hg] General acute hospital Diastolic blood pressure 2021-08-29 14:19:00 73 mm[Hg] General acute hospital Heart rate 2021-08-29 14:19:00 73 /min [facility] Body temperature 2021-08-29 14:19:00 37.11 Rosina [facility] Respiratory rate 2021-08-29 14:19:00 17 /min [facility] Body height 2021-08-29 14:19:00 152.4 cm General acute hospital Body weight 2021-08-29 14:19:00 81.647 kg General acute hospital BMI 2021-08-29 14:19:00 35.15 kg/m2 General acute hospital Oxygen saturation in Arterial blood by Pulse oximetry 2021-08-29 14:19:00 99 /min General acute hospital Systolic blood pressure 2020-10-27 02:35:15 119 mm[Hg] General acute hospital Diastolic blood pressure 2020-10-27 02:35:15 70 mm[Hg] General acute hospital Heart rate 2020-10-27 02:35:15 85 /min [facility] Respiratory rate 2020-10-27 02:35:15 16 /min [facility] Oxygen saturation in Arterial blood by Pulse oximetry 2020-10-27 02:35:15 99 /min General acute hospital Body temperature 2020-10-26 21:52:00 38.33 Rosina [facility] Body height 2020-10-26 21:52:00 152.4 cm [facility] Body weight 2020-10-26 21:52:00 78.926 kg [facility] BMI 2020-10-26 21:52:00 33.98 kg/m2 General acute hospital Systolic blood pressure 2020-07-21 13:51:00 123 mm[Hg] General acute hospital Diastolic blood pressure 2020-07-21 13:51:00 75 mm[Hg] General acute hospital Heart rate 2020-07-21 13:51:00 73 /min [facility] Body temperature 2020-07-21 13:51:00 36.72 Rosina [facility] Respiratory rate 2020-07-21 13:51:00 16 /min [facility] Body height 2020-07-21 13:51:00 152.4 cm General acute hospital Body weight 2020-07-21 13:51:00 79.289 kg General acute hospital BMI 2020-07-21 13:51:00 34.14 kg/m2 General acute hospital Systolic blood pressure 2020-07-15 12:58:00 132 mm[Hg] General acute hospital Diastolic blood pressure 2020-07-15 12:58:00 73 mm[Hg] General acute hospital Heart rate 2020-07-15 12:58:00 94 /min [facility] Body temperature 2020-07-15 12:58:00 36.5 Rosina [facility] Respiratory rate 2020-07-15 12:58:00 16 /min [facility] Body height 2020-07-15 12:58:00 152.4 cm General acute hospital Body weight 2020-07-15 12:58:00 76.715 kg General acute hospital BMI 2020-07-15 12:58:00 33.03 kg/m2 General acute hospital Systolic blood pressure 2020-03-19 19:30:00 139 mm[Hg] General acute hospital Diastolic blood pressure 2020-03-19 19:30:00 83 mm[Hg] General acute hospital Heart rate 2020-03-19 19:30:00 70 /min [facility] Respiratory rate 2020-03-19 19:30:00 14 /min [facility] Oxygen saturation in Arterial blood by Pulse oximetry 2020-03-19 19:30:00 99 /min General acute hospital Body temperature 2020-03-19 16:42:00 37.06 Rosina [facility] Body weight 2020-03-19 16:42:00 79.833 kg General acute hospital BMI 2020-03-19 16:42:00 33.25 kg/m2 General acute hospital Systolic blood pressure 2019-08-02 15:15:07 118 mm[Hg] General acute hospital Diastolic blood pressure 2019-08-02 15:15:07 79 mm[Hg] General acute hospital Heart rate 2019-08-02 15:15:07 99 /min [facility] Body temperature 2019-08-02 15:15:07 37.83 Rosina [facility] Respiratory rate 2019-08-02 15:15:07 19 /min [facility] Oxygen saturation in Arterial blood by Pulse oximetry 2019-08-02 15:15:07 99 /min General acute hospital Body weight 2019-08-02 12:53:00 79.379 kg General acute hospital BMI 2019-08-02 12:53:00 33.07 kg/m2 General acute hospital Systolic blood pressure 2019-08-02 15:15:07 118 mm[Hg] General acute hospital Diastolic blood pressure 2019-08-02 15:15:07 79 mm[Hg] General acute hospital Heart rate 2019-08-02 15:15:07 99 /min [facility] Body temperature 2019-08-02 15:15:07 37.83 Rosina [facility] Respiratory rate 2019-08-02 15:15:07 19 /min [facility] Oxygen saturation in Arterial blood by Pulse oximetry 2019-08-02 15:15:07 99 /min General acute hospital Body weight 2019-08-02 12:53:00 79.379 kg General acute hospital BMI 2019-08-02 12:53:00 33.07 kg/m2 General acute hospital Systolic blood pressure 2019-08-01 22:27:00 137 mm[Hg] General acute hospital Diastolic blood pressure 2019-08-01 22:27:00 91 mm[Hg] General acute hospital Heart rate 2019-08-01 22:27:00 74 /min [facility] Body temperature 2019-08-01 22:27:00 37.28 Rosina [facility] Respiratory rate 2019-08-01 22:27:00 15 /min [facility] Body height 2019-08-01 22:27:00 154.9 cm General acute hospital Body weight 2019-08-01 22:27:00 79.379 kg General acute hospital BMI 2019-08-01 22:27:00 33.07 kg/m2 General acute hospital Oxygen saturation in Arterial blood by Pulse oximetry 2019-08-01 22:27:00 99 /min General acute hospital Systolic blood pressure 2019-08-01 22:27:00 137 mm[Hg] General acute hospital Diastolic blood pressure 2019-08-01 22:27:00 91 mm[Hg] General acute hospital Heart rate 2019-08-01 22:27:00 74 /min [facility] Body temperature 2019-08-01 22:27:00 37.28 Rosina [facility] Respiratory rate 2019-08-01 22:27:00 15 /min [facility] Body height 2019-08-01 22:27:00 154.9 cm General acute hospital Body weight 2019-08-01 22:27:00 79.379 kg General acute hospital BMI 2019-08-01 22:27:00 33.07 kg/m2 General acute hospital Oxygen saturation in Arterial blood by Pulse oximetry 2019-08-01 22:27:00 99 /min General acute hospital Procedures Procedure Date / Time Performed Performing Clinician Source POCT MOLECULAR FLU 2023-07-03 18:43:00 Unknown, Attend ing [facility] IR SPINAL LUMBAR PUNCTURE DIAGNOSTIC 2023-04-11 15:29:00 Jojo Thomason [facility] IR SPINAL LUMBAR PUNCTURE DIAGNOSTIC 2023-04-11 15:29:00 Jojo Thomason [facility] DISCLOSURE AND CONSENT, MEDICAL AND SURGICAL PROCEDURES 2023-04-11 06:01:00 Doctor Unassigned, [place] [facility] POCT URINALYSIS 2022-11-29 00:00:00 Vitor Knowles [facility] POCT MOLECULAR STREP 2022-11-28 21:55:00 Unknown, Atte henrying [facility] RAPID STREP SCREEN FOR GROUP A 2022-11-28 06:58:00 Sarah Andrade [facility] RAPID INFLUENZA A/B 2022-11-28 06:58:00 Sarah Andrade [facility] CONSENT/REFUSAL FOR DIAGNOSIS AND TREATMENT 2022-11-28 06:23:02 Doctor Unassigned, [place] [facility] ASSIGNMENT OF BENEFITS 2022-08-08 17:37:22 Docto r Unassigned, [place] [facility] PATIENT FINANCIAL POLICY 2022-07-28 19:20:35 Doctor Unassigned, [place] [facility] POCT MOLECULAR FLU 2022-03-10 18:04:00 Unknown, Attend ing [facility] POCT MOLECULAR STREP 2021-08-29 14:23:00 Taylor Bradley [facility] ASSIGNMENT OF BENEFITS 2021-08-29 14:15:48 Docto r Unassigned, [place] [facility] AUTHORIZATION FOR RELEASE OF PHI 2021-08-19 05:01:00 Doctor Unassigned, [place] [facility] CT ABDOMEN PELVIS W CONTRAST 2020-10-27 01:46:24 Alireza Akhtar [facility] POCT TEST 2020-10-27 01:27:00 Emily Akhtar [facility] COMP. METABOLIC PANEL (41627) 2020-10-27 01:26:00 Alireza Akhtar [facility] CBC WITH DIFF 2020-10-27 01:26:00 Alireza Akhtar [facility] URINALYSIS 2020-10-27 01:26:00 [facility] (ID NOW RAPID TESTING) 2020-10-27 00:11:00 Alireza Akhtar [facility] NOTICE OF PRIVACY PRACTICES 2020-10-26 21:16:03 Doctor Unassigned, [place] [facility] CONSENT/REFUSAL FOR DIAGNOSIS AND TREATMENT 2020-10-26 21:13:09 Doctor Unassigned, [place] [facility] PPD (TB) 2020-07-19 13:29:51 [facility]REFUSAL FOR DIAGNOSIS AND TREATMENT 2020-07-15 12:45:38 Doctor Unassigned, [place] [facility] ASSIGNMENT OF BENEFITS 2020-07-15 12:45:24 Docto r Unassigned, [place] [facility] POCT TEST 2020-03-19 17:08:00 Leslie Noonan [facility] TROPONIN I 2020-03-19 17:05[facility]00 [facility] (81409[facility] (ALB,T.PRO,BILI T,BU/BC,ALT,AST,ALK PHOS) 2020-03-19 17:05:00 Eddie Noonan [facility] BASIC METABOLIC PANEL (NA, K, CL, CO2, GLUCOSE, BUN, CREATININE, CA) 2020-03-19 17:05:00 Eddie Noonan [facility] CBC WITH DIFF 2020-03-19 17:05:00 Eddie Noonan [facility] D-DIMER 2020-03-19 17:05:00 Eddie Noonan General acute hospital URINALYSIS 2020-03-19 [facility] 2020-03-19 17:05:00 Pallavi Noonan [facility] COVID-19 (ID NOW RAPID TESTING) 2020-03-19 17:05:00 dEdie Noonan [facility] XR CHEST 1 VW 2020-03-19 16:58:47 Eddie Noonan [facility] CONSENT/REFUSAL FOR DIAGNOSIS AND TREATMENT 2020-03-19 16:37:00 Doctor Unassigned, [place] [facility] BASIC METABOLIC PANEL (NA, K, CL, CO2, GLUCOSE, BUN, CREATININE, CA) 2019-08-02 13:07:00 Rosy Heredia [facility] CBC WITH DIFFERENTIAL 2019-08-02 13:07:00 Sa roman Heredia [facility] POCT TEST 2019-08-01 22:53:00 Nimco Heredia ra [facility] URINALYSIS 2019-08-01 22:51:00 [facility]SENT/REFUSAL FOR DIAGNOSIS AND TREATMENT 2019-08-01 22:22:36 Doctor Unassigned, [place] [facility] Encounters Start Date/Time End Date/Time Encounter Type Admission Type Attending [facility] Facility Care Department Encounter ID Source 2021-01-10 16:15:02 Emergency [facility] [id number] [facility] 2021-01-06 22:05:50 Emergency [facility] [id number] [facility] 2021-01-06 22:04:48 Emergency [facility] [id number] [facility] 2024-02-13 09:30:00 2024-02-13 09:30:00 Outpatient MICHAEL VIRAMONTES [id number] Марина [facility] 2023-05-31 00:00:00 2024-01-16 10:34:21 Letter (Out) Singh Vo [facility] 1.2.840.114 350.1.13.10 4.2.7.2.686 [id number] [facility] 2023-12-05 13:30:00 2023-12-05 13:30:00 Outpatient RENAE DURAN [id number] Марина [facility] 2023-11-09 00:00:00 2023-11-09 10:40:49 Telephone Vitor Knowles [facility] 1.2.840.114 350.1.13.10 4.2.7.2.686 [id number] [facility] 2023-07-03 13:20:00 2023-07-03 14:10:50 Outpatient GIA BARNETT [facility] [id number] [facility] 2023-07-03 13:20:00 2023-07-03 14:10:50 Urgent Care Gia Brown Unknown, Attending [facility] 1.2.840.114 350.1.13.10 4.2.7.2.686 [id number] [facility] 2023-05-31 15:30:00 2023-05-31 15:48:55 Outpatient R SINGH VO [facility] [id number] [facility] 2023-05-31 15:30:00 2023-05-31 15:48:55 Office Visit Zaid Singh [facility] 1..840.114 350.1.13.10 4.2.7.2.686 [id number] [facility] 2023-05-23 00:00:00 2023-05-23 00:00:00 Telephone Zaid Singh [facility] 1..840.114 350.1.13.10 4.2.7.2.686 [id number] [facility] 2023-04-30 16:00:00 2023-04-30 16:00:00 Outpatient RENAE DURAN [id number] Марина Hunt 2023-04-11 08:00:00 2023-04-11 23:59:00 Outpatient JOJO ARECHIGA [facility] [id number] [facility] 2023-04-11 07:23:37 2023-04-11 23:59:00 Hospital Encounter Jojo Thomason [facility] 1.2.840.114 350.1.13.10 4.2.7.2.686 [id number] [facility] 2023-02-07 08:30:00 2023-02-07 08:30:00 Outpatient JOJO ARECHIGA [facility] [id number] [facility] 2023-01-11 10:20:00 2023-01-11 10:40:00 Office Visit Singh Vo [facility] 1.2.840.114 350.1.13.10 4.2.7.2.686 [id number] [facility] 2023-01-11 10:20:00 2023-01-11 10:20:00 Outpatient Juliana SINGH VO SINGH [facility] [id number] [facility] 2023-01-11 00:00:00 2023-01-11 00:00:00 Letter (Out) Singh Vo [facility] 1.2.840.114 350.1.13.10 4.2.7.2.686 [id number] [facility] 2023-01-09 00:00:00 2023-01-09 00:00:00 Telephone Obey Krause [facility] 1.2.840.114 350.1.13.10 4.2.7.2.686 [id number] [facility] 2023-01-05 17:54:40 2023-01-05 23:59:00 Outpatient OBEY WALL HOWARD [facility] [id number] [facility] 2023-01-05 17:54:40 2023-01-05 23:59:00 Hospital Encounter Obey Krause [facility] 1..840.114 350.1.13.10 4.2.7.2.686 [id number] [facility] 2022-12-29 08:00:00 2022-12-29 08:41:29 Outpatient OBEY WALL HOWARD [facility] [id number] [facility] 2022-12-29 08:00:00 2022-12-29 08:41:29 Office Visit Obey Krause [facility] 1..840.114 350.1.13.10 4.2.7.2.686 [id number] [facility] 2022-12-29 00:00:00 2022-12-29 00:00:00 Letter (Out) Obey Krause [facility] 1..840.114 350.1.13.10 4.2.7.2.686 [id number] [facility] 2022-11-29 10:45:00 2022-11-29 11:00:00 R&D Engineer Visit Lab, Andrea Knowles Vitor [facility] 1..840.114 350.1.13.10 4.2.7.2.686 [id number] [facility] 2022-11-29 10:45:00 2022-11-29 10:45:00 Outpatient R VITOR KNOWLES [facility] [id number] [facility] 2022-11-29 09:00:00 2022-11-29 09:30:00 Office Visit Eleni [facility] 1..840.114 350.1.13.10 4.2.7.2.686 [id number] [facility] 2022-11-29 00:00:00 2022-11-29 00:00:00 Patient Secure Msg Eleni [facility] 1..840.114 350.1.13.10 4.2.7.2.686 [id number] [facility] 2022-11-29 00:00:00 2022-11-29 00:00:00 Letter (Out) Vitor Knowles [facility] 1.2840.114 350.1.13.10 4.2.7.2.686 [id number] [facility] 2022-11-28 16:40:00 2022-11-28 17:18:09 Outpatient R TAYLOR BRADLEY [facility] [id number] [facility] 2022-11-28 16:40:00 2022-11-28 17:18:09 Urgent Care Taylor Bradley Unknown, Attending [facility] 1.2840.114 350.1.13.10 4.2.7.2.686 [id number] [facility] 2022-11-28 01:30:00 2022-11-28 03:22:00 Emergency X Sarah ANDRADE [facility] [id number] [facility] 2022-11-28 01:30:00 2022-11-28 03:22:00 Emergency Sarah Andradege [facility] 1.840.114 350.1.13.10 4.2.7.2.686 [id number] [facility] 2022-11-28 00:00:00 2022-11-28 00:00:00 Letter (Out) [facility] 1.2840.114 350.1.13.10 4.2.7.2.686 [id number] [facility] 2022-08-31 00:00:00 2022-08-31 00:00:00 Telephone Lexy Horton [facility] [employer] 1.2840.114 350.1.13.10 4.2.7.2.686 [id number] [facility] 2022-08-09 00:00:00 2022-08-09 00:00:00 Patient Secure Msg Lexy Horton [facility] [employer] [facility] 1.0.114 350.1.13.10 4.2.7.2.686 [id number] [facility] 2022-08-09 00:00:00 2022-08-09 00:00:00 Letter (Out) GarciaIvette tsaicelina Bernardo [facility] [employer] [facility] 1.0.114 350.1.13.10 4.2.7.2.686 [id number] [facility] 2022-08-08 13:30:00 2022-08-08 13:31:40 Outpatient R HARRYRyan LEXY [facility] [id number] [facility] 2022-08-08 13:30:00 2022-08-08 13:31:40 Office Visit GarciaInga tsailinda Bernardo [facility] [employer] [facility] 1..114 350.1.13.10 4.2.7.2.686 [id number] [facility] 2022-08-08 00:00:00 2022-08-08 00:00:00 Orders Only Doctor Unassigned, [place] [facility] 1.0.114 350.1.13.10 4.2.7.2.686 [id number] [facility] 2022-07-28 14:20:00 2022-07-28 14:55:27 Outpatient R GIA BROWN [facility] [id number] [facility] 2022-07-28 14:20:00 2022-07-28 14:55:27 Urgent Care Gia Brown Unknown, Attending [facility] 1..114 350.1.13.10 4.2.7.2.686 [id number] [facility] 2022-07-28 00:00:00 2022-07-28 00:00:00 Orders Only Doctor Unassigned, [place] [facility] 1.840.114 350.1.13.10 4.2.7.2.686 [id number] [facility] 2022-03-10 12:00:00 2022-03-10 12:20:00 Urgent Care Milo Leone Unknown, Attending [facility] 1.840.114 350.1.13.10 4.2.7.2.686 [id number] [facility] 2022-03-10 12:00:00 2022-03-10 12:00:00 Outpatient MILO MEYER III [facility] [id number] [facility] 2022-03-10 00:00:00 2022-03-10 00:00:00 Letter (Out) Milo Leone [facility] MEDICAL OFFICE BUILDING 1..840.114 350.1.13.10 4.2.7.2.686 [id number] [facility] 2021-11-09 14:40:00 2021-11-09 15:02:51 Outpatient R DOLLY DURHAM [facility] [id number] [facility] 2021-11-09 14:40:00 2021-11-09 15:00:00 Urgent Care Jesusemily Dolly Unknown, Attending [facility] MEDICAL OFFICE BUILDING 1..840.114 350.1.13.10 4.2.7.2.686 [id number] [facility] 2021-08-29 09:20:00 2021-08-29 09:43:18 Outpatient R ROBSON PEREZ [facility] [id number] [facility] 2021-08-29 09:20:00 2021-08-29 09:43:18 Urgent Care Gregoria, Robson Bradley, [facility] 1.20.114 350.1.13.10 4.2.7.2.686 [id number] [facility] 2021-08-29 00:00:00 2021-08-29 00:00:00 Orders Only Doctor Unassigned, [place] [facility] 1.2840.114 350.1.13.10 4.2.7.2.686 [id number] [facility] 2021-08-19 00:00:00 2021-08-19 00:00:00 Orders Only Doctor Unassigned, [place] [facility] 1.2840.114 350.1.13.10 4.2.7.2.686 [id number] [facility] 2021-05-26 14:45:00 2021-05-26 14:45:00 Outpatient R MARILYN STRANGE [facility] [id number] [facility] 2021-05-25 15:00:00 2021-05-25 15:00:00 Outpatient R MARILYN STRANGE [facility] [id number] [facility] 2021-05-25 00:00:00 2021-05-25 00:00:00 Patient Secure Msg Marilyn Strange [facility] [employer] [facility] 1.0.114 350.1.13.10 4.2.7.2.686 [id number] [facility] 2020-10-26 16:56:00 2020-10-26 21:37:00 Emergency Alireza Akhtar [facility] 1.2840.114 350.1.13.10 4.2.7.2.686 [id number] [facility] 2020-08-05 00:00:00 2020-08-05 00:00:00 Telephone Christiano Gonsales [facility] [employer] [facility] 1..840.114 350.1.13.10 4.2.7.2.686 [id number] [facility] 2020-08-04 15:45:00 2020-08-04 15:45:00 Outpatient R MARILYN STRANGE [facility] [id number] [facility] 2020-07-21 08:26:46 2020-07-21 08:41:19 Nurse Visit Visit, [facility] Nurse Christiano Gonsales [facility] 1..840.114 350.1.13.10 4.2.7.2.686 [id number] [facility] 2020-07-21 08:30:00 2020-07-21 08:30:00 Outpatient R [facility] [id number] [facility] 2020-07-19 08:08:10 2020-07-19 08:22:30 [facility]ons[facility] CHILD [facility] 1..840.114 350.1.13.10 4.2.7.2.686 [id number] [facility] 2020-07-19 08:00:00 2020-07-19 08:00:00 Outpatient R [facility] [id number] [facility] 2020-07-16 00:00:00 2020-07-16 00:00:00 Patient Secure Msg Christiano Gonsales [facility] 1..840.114 350.1.13.10 4.2.7.2.686 [id number] [facility] 2020-07-15 07:46:24 2020-07-15 08:43:46 Office Visit Christiano Gonsales Juliana [facility] [employer] [facility] 1.2.840.114 350.1.13.10 4.2.7.2.686 [id number] [facility] 2020-07-15 07:45:00 2020-07-15 07:45:00 Outpatient R CHRISTIANO GONSALES [facility] [id number] [facility] 2020-07-15 00:00:00 2020-07-15 00:00:00 Orders Only Doctor Unassigned, [place] [facility] 1.2840.114 350.1.13.10 4.2.7.2.686 [id number] [facility] 2020-03-19 10:43:00 2020-03-19 13:54:00 Emergency Karlie Noonananne [facility] 1.2.840.114 350.1.13.10 4.2.7.2.686 [id number] [facility] 2020-03-19 10:43:00 2020-03-19 13:54:00 [facility] [id number] [facility] 2020-03-19 00:00:00 2020-03-19 00:00:00 Orders Only Doctor Unassigned, [place] [facility] 1.2840.114 350.1.13.10 4.2.7.2.686 [id number] [facility] 2019-08-02 07:55:29 2019-08-02 10:16:00 Emergency Rosy Heredia [facility] 1.2.840.114 350.1.13.10 4.2.7.2.686 [id number] [facility] 2019-08-02 07:55:29 2019-08-02 10:16:00 Emergency Rosy Heredia [facility] 1.2.840.114 350.1.13.10 4.2.7.2.686 [id number] 2019-08-01 17:31:59 2019-08-01 19:17:00 Emergency Rosy Heredia [facility] 1.2.840.114 350.1.13.10 4.2.7.2.686 [id number] [facility] 2019-08-01 17:31:59 2019-08-01 19:17:00 Emergency Rosy Heredia [facility] 1.2.840.114 350.1.13.10 4.2.7.2.686 [id number] 2019-08-01 00:00:00 2019-08-01 00:00:00 Orders Only Doctor Unassigned, [place] [facility] 1.2.840.114 350.1.13.10 4.2.7.2.686 [id number] [facility] 2019-08-01 00:00:00 2019-08-01 00:00:00 Orders Only Doctor Unassigned, [place] [facility] 1.2.840.114 350.1.13.10 4.2.7.2.686 [id number] 2018-11-18 00:00:00 2018-11-18 00:00:00 Patient Secure Yue Heredia [facility] [employer] [facility] 1.2.840.114 350.1.13.10 4.2.7.2.686 [id number] [facility] 2018-11-18 00:00:00 2018-11-18 00:00:00 Patient Secure Yue Heredia [facility] [employer] [facility] 1.2.840.114 350.1.13.10 4.2.7.2.686 [id number] 2018-09-19 00:00:00 2018-09-19 00:00:00 Patient Secure Msg Doctor Unassigned, [place] [facility] 1.2.840.114 350.1.13.10 4.2.7.2.686 [id number] [facility] 2018-09-19 00:00:00 2018-09-19 00:00:00 Patient Secure Msg Doctor Unassigned, [place] [facility] 1.2.840.114 350.1.13.10 4.2.7.2.686 [id number] Results Test Description Test Time Test Comments Results Result Co mments Source [facility]UNCT[facility] [id number] 14:28:51HISTORY: ?Chronic headache and possible idiopathic intracranialhypertension. MEDICATIONS: 1% local lidocaine. ? ATTENDING PRESENCE: ?As the attending radiologist, I was immediatelyphysically available during the entire procedure TECHNIQUE: Risks and benefits of this procedure were discussed with thepatient. ?Signed informed consent was obtained and placed in the chart. [place] protocol timeout was performed verifying right patient, rightsite, and right procedure. Images were archived to PACS.Utilizing sterile technique, fluoroscopic guidance, and local anesthetic, [id number] spinal needle was advanced into the thecal sac at the level ofL2-L3. The opening pressure was 22 CSF H2O. Approximately 30 mL of clear CSF was obtained. The closing pressure was 13 CSF H2O. The stylet was replaced and the needle was removed. The patient toleratedthe procedure well without difficulty. COMPLICATIONS: None. ? ? [facility] W SPECIFIC [id number] 14:22:00* Test Item Value Reference Range Interpretation Comme nts POCT U SP GRAV (test code = 3255) 1.025 mg/dl 1.005-1.025 POCT PH U (test code = 3254) 5 mg/dl 5-8 POCT U LEUK EST (test code = 3263) Negative Negative - Negative POCT U NIT (test code = 3262) Negatove Negative - Negati ve POCT U PROT (test code = 3259) Trace Negative - Negative POCT U GLU (test code = 3256) Normal Negative - Negati ve POCT U KETONE (test code = 3258) Negaive Negative - Negative POCT U UROBILI (test code = 3260) Normal 0.2-1 POCT U BILI (test code = 3261) Negative Negative - Negative POCT U BLD (test code = 3257) 50 Negative - Negati ve POCT U COLOR (test code = 3266) POCT U APPEAR (test code = 3267) Lab Interpretation (test cod e = 04980-9) Normal [facility] URINALYSIS W SPECIFIC [id number] 14:22:00* Test Item Value Reference Range Interpretation Comme nts POCT U SP GRAV (test code = 3255) 1.025 mg/dl 1.005-1.025 POCT PH U (test code = 3254) 5 mg/dl 5-8 POCT U LEUK EST (test code = 3263) Negative Negative - Negative POCT U NIT (test code = 3262) Negatove Negative - Negati ve POCT U PROT (test code = 3259) Trace Negative - Negative POCT U GLU (test code = 3256) Normal Negative - Negati ve POCT U KETONE (test code = 3258) Negaive Negative - Negative POCT U UROBILI (test code = 3260) Normal 0.2-1 POCT U BILI (test code = 3261) Negative Negative - Negative POCT U BLD (test code = 3257) 50 Negative - Negati ve POCT U COLOR (test code = 3266) POCT U APPEAR (test code = 3267) Lab Interpretation (test cod e = 68109-0) Normal [facility] MOLECULAR [id number] 22:02:32* Test Item Value Reference Range Interpretation Comme nts POCT Molecular Strep (test c ode = 45225-9) Negative Negative Lab Interpretation (test cod e = 04235-5) [facility] MOLECULAR [id number] 18:16:11* Test Item Value Reference Range Interpretation Comme nts POCT Molecular FluA (test co de = 07944-7) Negative Negative POCT Molecular FluB (test co de = 86508-5) Negative Negative Lab Interpretation (test cod e = 00015-7) [facility] MOLECULAR [id number] 14:30:55* Test Item Value Reference Range Interpretation Comme nts POCT Molecular Strep (test c ode = 39544-9) Negative Negative Lab Interpretation (test cod e = 50953-2) Normal [facility]2021-08-18 01:52:05* Test Item Value Reference Range Interpretation Comme nts APPEARANCE (test code = 5416977934) Hazy Clear A COLOR (test code = 1921541074) Yellow Yellow PH (test code = 5803433286) 4.8-8.0 SP GRAVITY (test code = 4635087952) 1.003-1.030 GLU U QUAL (test code = 1903514136) Normal Normal BLOOD (test code = 6760317400) Negative Negative KETONES (test code = 2650072565) Negative Negative PROTEIN (test code = 2887-8) Negative Negative UROBILIN (test code = 5852002081) Normal Normal BILIRUBIN (test code = 0504661323) Negative Negative NITRITE (test code = 4820152823) Negative Negative LEUK CATINA (test code = 6086944617) Negative Negative RBC/HPF (test code = 0165828800) See_Comment [Automated messa ge] The system which generated this result transmitted reference range: 0 - 3 HPF. The reference range was not used to interpret this result as normal/abnormal. WBC/HPF (test code = 0895951443) See_Comment [Automated messa ge] The system which generated this result transmitted reference range: 0 - 5 HPF. The reference range was not used to interpret this result as normal/abnormal. BACTERIA (test code = 0648501832) Negative Negative MUCOUS (test code = 0775953332) Slight Negative LPF A SQ EPITH (test code = 0428861110) HPF HYAL CAST (test code = 8093649943) See_Comment [Automated messa ge] The system which generated this result transmitted reference range: <=2 LPF. The reference range was not used to interpret this result as normal/abnormal. Lab Interpretation (test code = 46063-4) Abnormal [facility]. METABOLIC PANEL (51603)2020-10-27 01:47:49* Test Item Value Reference Range Interpretation Comme nts NA (test code = 6269065992) 137 mmol/L 135-145 K (test code = 7271766612) 3.5 mmol/L 3.5-5.0 CL (test code = 1195514146) 102 mmol/L 98-108 CO2 TOTAL (test code = 0185425927) 23 mmol/L 23-31 AGAP (test code = 7877061617) 2-16 BUN (test code = 8954717444) 10 mg/dL 7-23 GLUCOSE (test code = 1445078232) 90 mg/dL 70-110 CREATININE (test code = 8988381919) 0.78 mg/dL 0.50-1.04 TOTAL BILI (test code = 4152883332) 0.9 mg/dL 0.1-1.1 CALCIUM (test code = 9451331302) 9.0 mg/dL 8.6-10.6 T PROTEIN (test code = 5841195404) 8.4 g/dL 6.3-8.2 H ALBUMIN (test code = 7334121936) 4.6 g/dL 3.5-5.0 ALK PHOS (test code = 4844816530) 72 U/L 34-122 ALTv (test code = 1742-6) 13 U/L 5-35 AST(SGOT) (test code = 5153730352) 20 U/L 13-40 eGFR (test code = 5621378958) mL/min/1.73m2 MI (test code = MI) Association of Glomerular Filtration Rate (GFR) and Staging of Kidney Disease* + --+ --+ ------+| GFR (mL/min/1.73 m2) ?| With Kidney Damage ?| ?Without Kidney Damage+ --------+ --------+ +| ?>90 ?| ?Stage one ?| ? Normal ?+ ---+ ---+ -------+| ?60-89 ?| ?Stage two ?| ? Decreased GFR ? + --+ --+ ------+| ?30-59 ?| ?Stage three ?| ? Stage three ? + --+ --+ ------+| ?15-29 ?| ?Stage four ? | ? Stage four ?+ ---+ ---+ -------+| ?<15 (or dialysis) ? ?| ?Stage five ? | ? Stage five ?+ ---+ ---+ -------+ *Each stage assumes the associated GFR level has been in effect for at least three months. ?Stages 1 to 5, with or without kidney disease, indicate chronic kidney disease. Notes: Determination of stages one and two (with eGFR >59mL/min/1.73 m2) requires estimation of kidney damage for at least three months as defined by structural or functional abnormalities of the kidney, manifested by either:Pathological abnormalities or Markers of kidney damage (including abnormalities in the composition of the blood or urine or abnormalities in imaging tests). Lab Interpretation (test code = 93458-4) Abnormal [facility] WITH [id number] 01:35:27* Test Item Value Reference Range Interpretation Comme nts WBC (test code = 6690-2) See_Comment [Automated bCODE] The system which generated this result transmitted reference range: 4.30 - 11.10 10*3/?L. The reference range was not used to interpret this result as normal/abnormal. RBC (test code = 789-8) See_Comment [[employer]] The system which generated this result transmitted reference range: 3.93 - 5.25 10*6/?L. The reference range was not used to interpret this result as normal/abnormal. HGB (test code = 718-7) 11.4 g/dL 11.6-15.0 L HCT (test code = 4544-3) 35.3 % 35.7-45.2 L MCV (test code = 787-2) 78.6 fL 80.6-95.5 L MCH (test code = 785-6) 25.4 pg 25.9-32.8 L MCHC (test code = 786-4) 32.3 g/dL 31.6-35.1 RDW-SD (test code = 35255-4) 33.8 fL 39.0-49.9 L RDW-CV (test code = 788-0) 12.0 % 12.0-15.5 PLT (test code = 777-3) See_Comment [[employer]] The system which generated this result transmitted reference range: 166 - 358 10*3/?L. The reference range was not used to interpret this result as normal/abnormal. MPV (test code = 21277-7) 10.5 fL 9.5-12.9 NRBC/100 WBC (test code = 0939374306) See_Comment [Automated me ssage] The system which generated this result transmitted reference range: 0.0 - 10.0 /100 WBCs. The reference range was not used to interpret this result as normal/abnormal. NRBC x10^3 (test code = 3862414479) <0.01 See_Comment [Automated messa ge] The system which generated this result transmitted reference range: 10*3/?L. The reference range was not used to interpret this result as normal/abnormal. GRAN MAT (NEUT) % (test code = 770-8) 75.8 % IMM GRAN % (test code = 6850255830) 0.40 % LYMPH % (test code = 736-9) 16.2 % MONO % (test code = 5905-5) 6.2 % EOS % (test code = 713-8) 0.9 % BASO % (test code = 706-2) 0.5 % GRAN MAT x10^3(ANC) (test code = 4422741665) 5.75 10*3/uL 1.88-7.09 IMM GRAN x10^3 (test code = 3672055591) 0.03 10*3/uL 0.00-0.06 LYMPH x10^3 (test code = 731-0) 1.23 10*3/uL 1.32-3.29 L MONO x10^3 (test code = 742-7) 0.47 10*3/uL 0.33-0.92 EOS x10^3 (test code = 711-2) 0.07 10*3/uL 0.03-0.39 BASO x10^3 (test code = 704-7) 0.04 10*3/uL 0.01-0.07 Lab Interpretation (test code = 37819-9) Abnormal [facility] [id number] 01:27:00* Test Item Value Reference Range Interpretation Comme nts POCT PREG (test code = 1605) negative On board controls acceptable with C Line (test code = 3574) present Lab Interpretation (test cod e = 12453-7) Normal [facility] Center[facility]OVID[facility] (ID NOW RAPID TESTING)2020-10-27 01:02:42* Test Item Value Reference Range Interpretation Comme nts SARS-CoV-2 Rapid ID NOW (test code = 60243-1) Not Detected Not Detected MI (test code = MI) ID NOW COVID-19 As say is an isothermal nucleic acid amplification test intended for the qualitative detection of nucleic acid from SARS-CoV-2 viral RNA in nasopharyngeal (TUBE CUTTER OPERATOR) specimens. It is used under Emergency Use Authorization (EUA) by FDA. The limit of detection (LOD) of the assay is 125 Genome Equivalents/mL. A positive result is indicative of the presence of SARS-CoV-2 RNA. ?Clinical correlation with patient history and other diagnostic information is necessary to determine patient infection status. A negative (Not Detected) result does not preclude SARS-CoV-2 infection. In patients with clinical symptoms and other tests that are consistent with SARS-CoV-2 infection, negative results should be treated as presumptive negative and a new specimen should be tested with alternative PCR molecular test. Invalid: Please collect a new specimen for repeat patient testing if clinically indicated. Lab Interpretation (test code = 87256-4) Normal [facility] CenterD-[id number] 18:46:00* Test Item Value Reference Range Interpretation Comments D-DIMER (test code = 4287844757) <0.27 See_Comment [Automated message] The system which generated this result transmitted reference range: <0.41 ?g/mL (FEU). The reference range was not used to interpret this result as normal/abnormal. MI (test code = MI) This test may be used in conjunction with a clinical pretest probability (PTP) assessment model to exclude venous thromboembolism (VTE) in patients suspected of deep venous thrombosis (DVT) and pulmonary embolism (PE) A D-Dimer value less than 0.50 ?g/ml (FEU) has a negative predicative value of 96 to 100% (95% CI)and 97 to 100% (95% CI) as an aid in the diagnosis of deep vein thrombosis (DVT) and pulmonary embolism when there is low or moderate pretest probability of PE or DVT. D-Dimer values are expressed in initial fibrinogen equivalent units (FEU)" The assay results should be used with other information, including the clinical context, in forming a diagnosis. Lab Interpretation (test code = 03957-3) Normal [facility] Center[facility] with [id number] 17:56:00* Test Item Value Reference Range Interpretation Comme nts WBC (test code = 6690-2) See_Comment [Automated messa ge] The system which generated this result transmitted reference range: 4.30 - 11.10 10*3/?L. The reference range was not used to interpret this result as normal/abnormal. RBC (test code = 789-8) See_Comment [Automated messa ge] The system which generated this result transmitted reference range: 3.93 - 5.25 10*6/?L. The reference range was not used to interpret this result as normal/abnormal. HGB (test code = 718-7) 13.5 g/dL 11.6-15 HCT (test code = 4544-3) 41.4 % 35.7-45.2 MCV (test code = 787-2) 82.0 fL 80.6-95.5 MCH (test code = 785-6) 26.7 pg 25.9-32.8 MCHC (test code = 786-4) 32.6 g/dL 31.6-35.1 RDW-SD (test code = 82086-4) 36.9 fL 39-49.9 L RDW-CV (test code = 788-0) 12.2 % 12-15.5 PLT (test code = 777-3) See_Comment [Automated messa ge] The system which generated this result transmitted reference range: 166 - 358 10*3/?L. The reference range was not used to interpret this result as normal/abnormal. MPV (test code = 88619-2) 10.9 fL 9.5-12.9 NRBC/100 WBC (test code = 3575067421) See_Comment [Automated Nymirum ssage] The system which generated this result transmitted reference range: 0.0 - 10.0 /100 WBCs. The reference range was not used to interpret this result as normal/abnormal. NRBC x10^3 (test code = 5175798230) <0.01 See_Comment [Automated messa ge] The system which generated this result transmitted reference range: 10*3/?L. The reference range was not used to interpret this result as normal/abnormal. GRAN MAT (NEUT) % (test code = 770-8) 59.4 % IMM GRAN % (test code = 4857796036) 0.30 % LYMPH % (test code = 736-9) 33.4 % MONO % (test code = 5905-5) 4.6 % EOS % (test code = 713-8) 1.7 % BASO % (test code = 706-2) 0.6 % GRAN MAT x10^3(ANC) (test code = 9313800883) 4.09 10*3/uL 1.88-7.09 IMM GRAN x10^3 (test code = 5982000235) <0.03 0-0.06 LYMPH x10^3 (test code = 731-0) 2.30 10*3/uL 1.32-3.29 MONO x10^3 (test code = 742-7) 0.32 10*3/uL 0.33-0.92 L EOS x10^3 (test code = 711-2) 0.12 10*3/uL 0.03-0.39 BASO x10^3 (test code = 704-7) 0.04 10*3/uL 0.01-0.07 Lab Interpretation (test code = 72340-7) Abnormal [facility] CenterUrinalysis2021-01-08 17:54:00* Test Item Value Reference Range Interpretation Comme nts APPEARANCE (test code = 9593108971) Cloudy Clear A COLOR (test code = 6815548779) Madelaine Yellow A PH (test code = 1423482169) 4.8-8.0 SP GRAVITY (test code = 2956294087) 1.003-1.030 GLU U QUAL (test code = 2565329054) Normal Normal BLOOD (test code = 6388833126) 3+ Negative A KETONES (test code = 4888264786) 80 mg/dL Negative A PROTEIN (test code = 2887-8) 100 mg/dL Negative A UROBILIN (test code = 2698556880) 4.0 mg/dL Normal A BILIRUBIN (test code = 5925207989) Negative Negative NITRITE (test code = 8201515712) Negative Negative LEUK CATINA (test code = 9660640381) Negative Negative RBC/HPF (test code = 2688873638) See_Comment H [Automated messa ge] The system which generated this result transmitted reference range: 0 - 3 HPF. The reference range was not used to interpret this result as normal/abnormal. WBC/HPF (test code = 2114069272) See_Comment H [Automated [employer]] The system which generated this result transmitted reference range: 0 - 5 HPF. The reference range was not used to interpret this result as normal/abnormal. BACTERIA (test code = 9505743889) Many Negative A MUCOUS (test code = 3359322246) Marked Negative LPF A AMORPHOUS (test code = 9759036312) Moderate Rare HPF A SQ EPITH (test code = 0449514129) HPF YEAST BUD (test code = 3511274894) See_Comment H [[employer]ated [employer]] The system which generated this result transmitted reference range: <=1 HPF. The reference range was not used to interpret this result as normal/abnormal. Lab Interpretation (test code = 75864-4) Abnormal [facility] [id number] 17:50:00* Test Item Value Reference Range Interpretation Comme nts TROPONIN I (test code = 4141755440) <0.012 See_Comment [Automated message] The system which generated this result transmitted reference range: <=0.034 ng/mL. The reference range was not used to interpret this result as normal/abnormal. MI (test code = MI) Equal or Less than 0.034 ng/ml---Normal ?Note: Cardiac troponin begins to rise 3-4 hours after the onset of ischemia. Repeat in 4-6 hours if the sample was drawn within 3-4 hours of the onset of the symptom and found normal. Between 0.035 and 0.120 ng/mL--- Borderline. Questionable myocardial injury or necrosis ? ?Note: Serial measurement may be necessary to confirm or exclude the diagnosis of myocardial injury or necrosis; Clinical correlation (symptoms, EKGs, imaging studies, and others) required; Repeat in 4-6 hours if clinically indicated. ? Equal or Higher than 0.121 ng/mL---Abnormal. Myocardial Injury or Necrosis Likely ? Biotin has been reported to cause a negative bias, interpret results relative to patient's use of biotin. ? Lab Interpretation (test code = 86670-1) Normal [facility] CenterN-TERMINAL [id number] 17:47:00* Test Item Value Reference Range Interpretation Comme nts NT-proBNP (test code = 9576679175) 25 pg/mL See_Comment [Automated message] The system which generated this result transmitted reference range: <=125. The reference range was not used to interpret this result as normal/abnormal. MI (test code = MI) Biotin has been reported to cause a negative bias, interpret results relative to patient's use of biotin. Lab Interpretation (test code = 75969-2) Normal [facility] (NA, K, CL, CO2, GLUCOSE, BUN, CREATININE, CA)2020-03-19 17:38:00* Test Item Value Reference Range Interpretation Comme nts NA (test code = 5447303273) 141 mmol/L 135-145 K (test code = 4419499087) 3.6 mmol/L 3.5-5 CL (test code = 7944742411) 101 mmol/L 98-108 CO2 TOTAL (test code = 9256445238) 29 mmol/L 23-31 AGAP (test code = 9643503688) 2-16 BUN (test code = 7334348509) 8 mg/dL 7-23 GLUCOSE (test code = 9281293584) 81 mg/dL 70-110 CREATININE (test code = 1062789845) 0.87 mg/dL 0.5-1.04 CALCIUM (test code = 3557885461) 9.2 mg/dL 8.6-10.6 eGFR Calculation (Non-) (test code = 4462431551) mL/min/1.73m2 eGFR Calculation () (test code = 4012881141) mL/min/1.73m2 MI (test code = MI) Association of Glomerular Filtration Rate (GFR) and Staging of Kidney Disease* + -+ + ---+| GFR (mL/min/1.73 m2) ?| With Kidney Damage ?| ?Without Kidney Damage+ -------+ ------+ ---------+| ?>90 ?| ?Stage one ?| ? Normal ?+ --+ -+ ----+| ?60-89 ?| ?Stage two ?| ? Decreased GFR ? + -+ + ---+| ?30-59 ?| ?Stage three ?| ? Stage three ? + -+ + ---+| ?15-29 ?| ?Stage four ? | ? Stage four ?+ --+ -+ ----+| ?<15 (or dialysis) ? ?| ?Stage five ? | ? Stage five ?+ --+ -+ ----+ *Each stage assumes the associated GFR level has been in effect for at least three months. ?Stages 1 to 5, with or without kidney disease, indicate chronic kidney disease. Notes: Determination of stages one and two (with eGFR >59mL/min/1.73 m2) requires estimation of kidney damage for at least three months as defined by structural or functional abnormalities of the kidney, manifested by either:Pathological abnormalities or Markers of kidney damage (including abnormalities in the composition of the blood or urine or abnormalities in imaging tests). [facility] (ALB, T.PRO, BILI T, BU/BC, ALT, AST, ALK PHOS)2020-03-19 17:38:00* Test Item Value Reference Range Interpretation Comme nts TOTAL BILI (test code = 0912005032) 1.1 mg/dL 0.1-1.1 BILI UNCON (test code = 4877172321) 0.9 mg/dL 0.1-1.1 BILI CONJ (test code = 3699139284) 0.0 mg/dL 0-0.3 T PROTEIN (test code = 9874092952) 8.6 g/dL 6.3-8.2 H ALBUMIN (test code = 3974789044) 4.9 g/dL 3.5-5 ALK PHOS (test code = 5882580566) 66 U/L 34-122 ALTv (test code = 1742-6) 49 U/L 5-35 H AST(SGOT) (test code = 2160856659) 29 U/L 13-40 Lab Interpretation (test cod e = 22326-5) Abnormal [facility] (ID NOW RAPID TESTING)2020-03-19 17:32:00* Test Item Value Reference Range Interpretation Comme nts SARS-CoV-2 Rapid ID NOW (test code = 67736-3) Positive Not Detected A MI (test code = MI) ID NOW COVID-19 As say is an isothermal nucleic acid amplification test intended for the qualitative detection of nucleic acid from SARS-CoV-2 viral RNA in nasopharyngeal (TUBE CUTTER OPERATOR) specimens. It is used under Emergency Use Authorization (EUA) by FDA. The limit of detection (LOD) of the assay is 125 Genome Equivalents/mL. A positive result is indicative of the presence of SARS-CoV-2 RNA. ?Clinical correlation with patient history and other diagnostic information is necessary to determine patient infection status. A negative (Not Detected) result does not preclude SARS-CoV-2 infection. In patients with clinical symptoms and other tests that are consistent with SARS-CoV-2 infection, negative results should be treated as presumptive negative and a new specimen should be tested with alternative PCR molecular test. Invalid: Please collect a new specimen for repeat patient testing if clinically indicated. Lab Interpretation (test code = 65127-6) Abnormal [facility] [id number] 17:08:00* Test Item Value Reference Range Interpretation Comme [facility] POCT PREG (test code = 1605) negative On board controls acceptable with C Line (test code = 3574) present POCT PREG LOT # (test code = 3575) [id number] POCT PREG TEST DATE ( test code = 3576) 11/09/2021 Lab Interpretation (test cod e = 12893-0) Normal [facility] 1 [id number] 17:05:25Impression: No acute cardiopulmonary abnormality.Exam: XR CHEST 1 03/19/2020 10:54 AM Clinical History: SOB Comparison: Radiograph of 05/30/2015 Technique: frontal view of the chest Findings: The lungs are clear. ?No pleural effusion. ?No pneumothorax. The cardiac size is normal. No acute osseous abnormality. [facility], Radiant Results Inft User - 03/19/2020 11:06 AM CSTExam: XR CHEST 1 03/19/2020 10:54 AMClinical History: SOB Comparison: Radiograph of 05/30/2015Technique: frontal view of the chestFindings:The lungs are clear. No pleural effusion. No pneumothorax. The cardiac size is normal. No acute osseous abnormality.IMPRESSIONImpression: No acute cardiopulmonary abnormality.[facility] (NA, K, CL, CO2, GLUCOSE, BUN, CREATININE, CA)2019-08-02 13:33:00* Test Item Value Reference Range Interpretation Comme nts NA (test code = 0671250338) 139 mmol/L 135-145 K (test code = 9729284827) 3.9 mmol/L 3.5-5 CL (test code = 0694248117) 104 mmol/L 98-108 CO2 TOTAL (test code = 8875779892) 24 mmol/L 23-31 AGAP (test code = 3492141222) 2-16 BUN (test code = 6828997317) 10 mg/dL 7-23 GLUCOSE (test code = 0734822003) 113 mg/dL 70-110 H CREATININE (test code = 8308393340) 0.77 mg/dL 0.5-1.04 CALCIUM (test code = 9485373556) 9.0 mg/dL 8.6-10.6 eGFR Calculation (Non-) (test code = 3311652354) mL/min/1.73m2 eGFR Calculation () (test code = 7764032618) mL/min/1.73m2 MI (test code = MI) Association of Glomerular Filtration Rate (GFR) and Staging of Kidney Disease* + --+ --+ ------+| GFR (mL/min/1.73 m2) ?| With Kidney Damage ?| ?Without Kidney Damage+ --------+ --------+ +| ?>90 ?| ?Stage one ?| ? Normal ?+ ---+ ---+ -------+| ?60-89 ?| ?Stage two ?| ? Decreased GFR ? + --+ --+ ------+| ?30-59 ?| ?Stage three ?| ? Stage three ? + --+ --+ ------+| ?15-29 ?| ?Stage four ? | ? Stage four ?+ ---+ ---+ -------+| ?<15 (or dialysis) ? ?| ?Stage five ? | ? Stage five ?+ ---+ ---+ -------+ *Each stage assumes the associated GFR level has been in effect for at least three months. ?Stages 1 to 5, with or without kidney disease, indicate chronic kidney disease. Notes: Determination of stages one and two (with eGFR >59mL/min/1.73 m2) requires estimation of kidney damage for at least three months as defined by structural or functional abnormalities of the kidney, manifested by either:Pathological abnormalities or Markers of kidney damage (including abnormalities in the composition of the blood or urine or abnormalities in imaging tests). Lab Interpretation (test code = 65432-3) Abnormal [facility] WITH [id number] 13:16:00* Test Item Value Reference Range Interpretation Comme nts WBC (test code = 6690-2) See_Comment [Automated [employer]] The system which generated this result transmitted reference range: 4.30 - 11.10 10*3/?L. The reference range was not used to interpret this result as normal/abnormal. RBC (test code = 789-8) See_Comment [Automated [employer]] The system which generated this result transmitted reference range: 3.93 - 5.25 10*6/?L. The reference range was not used to interpret this result as normal/abnormal. HGB (test code = 718-7) 12.0 g/dL 11.6-15 HCT (test code = 4544-3) 35.9 % 35.7-45.2 MCV (test code = 787-2) 83.1 fL 80.6-95.5 MCH (test code = 785-6) 27.8 pg 25.9-32.8 MCHC (test code = 786-4) 33.4 g/dL 31.6-35.1 RDW-SD (test code = 21402-5) 35.8 fL 39-49.9 L RDW-CV (test code = 788-0) 11.8 % 12-15.5 L PLT (test code = 777-3) See_Comment [Automated [employer]] The system which generated this result transmitted reference range: 166 - 358 10*3/?L. The reference range was not used to interpret this result as normal/abnormal. MPV (test code = 03345-2) 10.3 fL 9.5-12.9 NRBC/100 WBC (test code = 6158270209) See_Comment [Automated [employer] ssage] The system which generated this result transmitted reference range: 0.0 - 10.0 /100 WBCs. The reference range was not used to interpret this result as normal/abnormal. NRBC x10^3 (test code = 7434540160) <0.01 See_Comment [Automated messa ge] The system which generated this result transmitted reference range: 10*3/?L. The reference range was not used to interpret this result as normal/abnormal. GRAN MAT (NEUT) % (test code = 770-8) 91.1 % IMM GRAN % (test code = 6221748681) 0.40 % LYMPH % (test code = 736-9) 6.4 % MONO % (test code = 5905-5) 1.1 % EOS % (test code = 713-8) 0.6 % BASO % (test code = 706-2) 0.4 % GRAN MAT x10^3(ANC) (test code = 5957382262) 9.52 10*3/uL 1.88-7.09 H IMM GRAN x10^3 (test code = 0237279078) 0.04 10*3/uL 0-0.06 LYMPH x10^3 (test code = 731-0) 0.67 10*3/uL 1.32-3.29 L MONO x10^3 (test code = 742-7) 0.11 10*3/uL 0.33-0.92 L EOS x10^3 (test code = 711-2) 0.06 10*3/uL 0.03-0.39 BASO x10^3 (test code = 704-7) 0.04 10*3/uL 0.01-0.07 Lab Interpretation (test code = 59002-7) Abnormal [facility] CenterUrinalysis2020-05-22 23:58:00* Test Item Value Reference Range Interpretation Comme nts APPEARANCE (test code = 6216596802) Cloudy Clear A COLOR (test code = 7206907922) Yellow Yellow PH (test code = 0379949126) 4.8-8.0 SP GRAVITY (test code = 7520705452) 1.003-1.030 GLU U QUAL (test code = 8065621491) Negative Negative BLOOD (test code = 0722901395) Moderate Negative A KETONES (test code = 2428286418) Negative Negative PROTEIN (test code = 2887-8) 100 mg/dL Negative A UROBILIN (test code = 2693708331) 0.2 mg/dL See_Comment [Automated messa ge] The system which generated this result transmitted reference range: 0-1.0 mg/dL. The reference range was not used to interpret this result as normal/abnormal. BILIRUBIN (test code = 3962296070) Negative Negative NITRITE (test code = 8153870315) Positive Negative A LEUK CATINA (test code = 1444109988) Moderate Negative A RBC/HPF (test code = 7051726133) See_Comment H [Automated messa ge] The system which generated this result transmitted reference range: 0 - 3 HPF. The reference range was not used to interpret this result as normal/abnormal. WBC/HPF (test code = 8667561132) See_Comment H [Automated messa ge] The system which generated this result transmitted reference range: 0 - 5 HPF. The reference range was not used to interpret this result as normal/abnormal. BACTERIA (test code = 1119071829) Moderate Negative A Lab Interpretation (test code = 67143-1) Abnormal [facility] Center[facility] Test, [id number] 22:53:00 * Test Item Value Reference Range Interpretation Comme nts POCT PREG (test code = 1605) negative On board controls acceptable with C Line (test code = 3574) present POCT PREG LOT # (test code = 3575) [id number] POCT PREG TEST DATE ( test code = 3576) 10/09/2020 Lab Interpretation (test cod e = 61448-9) Normal [facility] Notes Date/Time Note Provider Source 2023-11-09 10:40:19 Done, Pt needs apt last apt was 11/30/23 Likely needs labs done [facility] 2023-11-09 09:52:21 Recent Visits Date Type Provider Dept 11/29/22 Office Visit Vitor Knowles FNP [facility] 08/08/22 Office Visit Lexy Horton, CNM [facility] Showing recent visits within past 540 days with a meds authorizing provider and meeting all other requirements Future Appointments No visits were found meeting these conditions. Showing future appointments within next 150 days with a meds authorizing provider and meeting all other requirements Ivis Raymond LVN [facility] 2023-11-09 09:49:50 Marquita with [facility] is checking the status of referral Regine Heart [facility] 2023-11-09 09:34:23 Madie from [facility] Is calling requesting a referral for pt to: Dept: Reproductive endocrinology Reason for Referral: Infertility Issues Duration of problem: N/A Internal / External referral: External Name of provider / location patient requesting: Dr. Alexandra Cordero MD / [id number] [place] [address] Appt already scheduled?: Yes If yes, Date of Appt: 11/14/2023 Bernard Ordonez [facility] 2023-05-23 13:13:54 Images from the original note were not included. Please assist in scheduling follow up for follow up and results review. Indira Yarbrough RN [facility] 2023-05-23 13:12:26 Returned patient's call. No answer, so LVM. Opening pressure was 22, which is on the higher side of normal. She can make appointment to see Dr. Vo in clinic to discuss results further and plan going forward. 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 Topic: Clinical - Medical Advice >> May 23, 2023 12:56 PM Patient Component Inspector wrote: Rina Sim is a 33 year old female Pt is calling in regards to her results from her test she had done in March. 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 Pt discharged home. Given all education and information regarding fever management; s/s of worsening condition; follow up importance. Pt and family verbalize understanding. Alert and ambulatory to pov. [facility] 2022-11-28 01:26:49 Formatting of this n ote might be different from the original. Pt to ed with spouse. Alert and ambulatory. Vss. C/o fever with onset of approx 10 pm. No tylenol/motrin taken. Denies any other symptoms. 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 DT Sanjay Packer RN [facility]
[2024-01-31 10:09] LABS: Specific Gravity 1.018 (1.005-1.030); Urine Bilirubin NEGATIVE (Negative); Urine Blood Negative (Negative); Urine Clarity Clear (Clear); Urine Color Light-Yellow (Yellow); Urine Glucose NEGATIVE (Negative); Urine Ketones NEGATIVE (Negative); Urine Microscopic Reflex YN NO UMIC; Urine Nitrite NEGATIVE (Negative); Urine Protein NEGATIVE (Negative); Urine Urobilinogen Normal (Normal)
[2024-01-31 10:10] LABS: Absolute Basophils 0.1 K/uL (0-0.5); Absolute Eosinophils 0.1 K/uL (0-0.5); Absolute Lymphocytes (CBC) 1.9 K/uL (0.7-4.9); Absolute Monocytes 0.7 K/uL (0.1-1.3); Absolute Neutrophil 12.7 K/uL (1.8-8.0); Basophils % 0.5 % (0-1.3); Eosinophils % 0.9 % (0-4.4); Hemoglobin 11.7 g/dL (12.0-15.0); Lymphocytes % 12.2 % (15.3-44.8); MCH 26.6 pg (27.0-35.0); MCHC 33.5 g/dL (32.0-36.0); MCV 79.5 fL (80-100); Monocytes % 4.7 % (3.3-12.3); Neutrophils % 81.7 % (41.7-73.7); Platelets 360 thou/uL (152-406); RBC Red Blood Cell Count 4.41 M/uL (3.86-4.86); Red Cell Distribution Width 14.9 % (12.1-15.2)
--- NOTE | 2024-01-31 10:20 | RAD REPORT ---
EXAMINATION: US Transvaginal OB, US pelvis complete COMPARISON: None. HISTORY: [facility] MAIN pelvic pain Bed Name: IW1 TECHNIQUE: Real-time ultrasound was performed through the pelvis, including the transvaginal scan per formed to better visualize the intrauterine contents and adnexa. FINDINGS: There is a single living intrauterine . heart rate: 174 bpm. Yolk sac is visualized, measuring 3.6 mm in diameter. Small crescentic subchorionic hemorrhage measuring 7 mm in thickness. Both ovaries are visualized and appear unremarkable, with some peripheral cysts and follicles bilater ally largest on the right measuring 3.1 cm. The right ovary was only seen transabdominally. Mild free fluid in the cul-de-sac. Measurements and Calculations: [place] rump length 2.01 CM, consistent with a sonographic age of 8 weeks, 4 days. The patient's LMP d ates is not stated. IMPRESSION: Single living intrauterine , with a composite sonographic age of 8 weeks, 4 days, compared t o a gestational age of 8 weeks, 3 days, based on LMP. Small subchorionic hemorrhage measuring 7 mm in thickness. Close clinical follow-up, and consideratio n of follow-up pelvic ultrasound in 7-10 days are recommended to ensure viability.
[2024-01-31 10:41] LABS: ALT/SGPT 28 U/L (13-56); AST/SGOT 15 U/L (15-37); Albumin 3.4 g/dL (3.4-5.0); Albumin/Globulin Ratio 0.8 (1.1-1.8); Alkaline Phosphatase 80 U/L (45-117); Anion Gap 9.3 mEq/L (5.0-15.0); BUN Blood Urea Nitrogen 10 mg/dL (7-18); Bicarbonate 23 mEq/L (21-32); Bilirubin Total 0.3 mg/dL (0.2-1.0); Globulin 4.3 g/dL (2.3-3.5); Glomerular Filtration Rate 112 ml/min (=/>90); Glucose Level 104 mg/dL (74-106); HCG, Quantitative 56400 mIU/mL (1-3); Potassium 3.3 mEq/L (3.5-5.1); Protein, Total 7.7 g/dL (6.4-8.2); Sodium Level 136 mEq/L (136-145)
[2024-01-31 10:42] LABS: Bilirubin Direct < 0.2 mg/dL (0-0.2); Bilirubin Indirect, Calculated 0.1 mg/dL (0.2-0.8)
--- NOTE | 2024-01-31 15:18 | RAD REPORT ---
EXAMINATION: MRI ABDOMEN WITHOUT AND WITH CONTRAST CLINICAL INDICATION: Female, 34 years old. Right lower quadrant pain, TECHNIQUE: Multiplanar, multi sequence imaging of the abdomen was performed before and after administ ration of gadolinium-based IV contrast. Unless otherwise specified, incidental findings do not require dedicated imaging follow-up. Unless otherwise specified, incidental findings do not require d edicated imaging follow-up. COMPARISON: No prior exam. FINDINGS: The examination was tailored to evaluate for potential tenosynovitis the patient in the first trimest er of . Study is considered quite limited. Endometrial stripe is thickened and filled with fluid measuring up to 16 mm. The right ovary appears enlarged in the right upper quadrant measuring 7.2 x 4.4 cm. Numerous follicles are present. Left ovary measures 5.2 x 3.2 cm with several follicles. No pelvic free fluid seen. No bulky adenopathy. It is difficult to confidently localize the appendix. There is a tubular structure seen in the inferi or right pelvis which could be the appendix. There is no abnormal appearance to this. There is no inflammatory changes seen region. IMPRESSION: It is unlikely that appendicitis is present based on the submitted images. The right ovary is noted to be enlarged measuring up to 7 cm in size with numerous follicles.
--- NOTE | 2024-01-31 15:25 | ER ---
Nurse's Notes [facility] Name: Raquel Sim Age: 34 yrs Sex: Female : 1990 Arrival Date: 01/31/2024 Time: 07:59 Bed 24 Private MD: Diagnosis: Abdominal pain in the first trimester Presentation: 01/30 08:26 Chief complaint: Patient states: sharp, R lower quadrant pain that began at 0630 this morning. Pt reports she is 8 weeks . Denies vaginal bleeding. Coronavirus screen: Client denies travel out of the [place] in the last 14 days. Ebola Screen: Patient denies exposure to infectious person. Patient denies travel to an Ebola-affected area in the 21 days before illness onset. Initial Sepsis Screen: Does the patient meet any 2 criteria? No. Patient's initial sepsis screen is negative. Does the patient have a suspected source of infection? No. Patient's initial sepsis screen is negative. Risk Assessment: Do you want to hurt yourself or someone else? Patient reports no desire to harm self or others. Onset of symptoms was January 31, 2024. 08:26 Method Of Arrival: Ambulatory ss 08:26 Acuity: DUANE 3 ss Triage Assessment: 09:49 GI: No signs and/or symptoms were reported involving the gastrointestinal system. 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 - Infectious Disease History:: Denies. - Social history:: Smoking status: Patient denies any tobacco usage or history of. - Family history:: not pertinent. Screenin:44 Abuse screen: Denies threats or abuse. Nutritional screening: No deficits noted. ap3 Tuberculosis screening: No symptoms or risk factors identified. 09:49 [facility] ED Fall Risk Assessment (Adult) History of falling in the last 3 months, ap3 including since admission No falls in past 3 months (0 pts) Confusion or Disorientation No (0 pts) Intoxicated or Sedated No (0 pts) Impaired Gait No (0 pts) Mobility Assist Device Used No (0 pt) Altered Elimination No (0 pt) Score/Fall Risk Level 0 - 2 = Low Risk Oriented to surroundings, Maintained a safe environment, Educated pt \T\ family on fall prevention, incl call for assistance when getting out of bed, Assessed \T\ reinforced patient's understanding of fall precautions, Hourly rounding (assess needs \T\ fall precautionary measures) done, Used ambulatory aids as needed (educated on \T\ assisted with), Used gait belt as appropriate. Assessment: 09:48 General: Appears uncomfortable, Behavior is calm, cooperative, appropriate for age. ap3 Pain: Complains of pain in right lower quadrant Pain began 0630 this morning. Neuro: Level of Consciousness is awake, alert, obeys commands, Oriented to person, place, time, situation, Appropriate for age Gait is steady, Speech is normal. Cardiovascular: Patient's skin is warm and dry. Respiratory: Airway is patent Respiratory effort is even, unlabored, Respiratory pattern is regular, symmetrical. 12:15 General: Appears uncomfortable, well groomed, well developed, well nourished, Behavior me1 is calm, cooperative, appropriate for age. Pain: Complains of pain in right lower quadrant Pain does not radiate. Pain currently is 2 out of 10 on a pain scale. Quality of pain is described as tender, Is continuous. Neuro: Level of Consciousness is awake, alert, obeys commands, Oriented to person, place, time, situation, Appropriate for age. Cardiovascular: Patient's skin is warm and dry. Respiratory: Airway is patent Respiratory effort is even, unlabored, Respiratory pattern is regular, symmetrical. GI: Abdomen is round non-distended, Bowel sounds present X 4 quads. Abd is soft X 4 quads. : No signs and/or symptoms were reported regarding the genitourinary system. EENT: No signs and/or symptoms were reported regarding the EENT system. Derm: Skin is intact, is healthy with good turgor, Skin is pink, warm \T\ dry. Musculoskeletal: No signs and/or symptoms reported regarding the musculoskeletal system. Vital Signs: 08:26 Pulse 86; Resp 17; Temp 98.2(TE); Pulse Ox 100% on R/A; Weight 81.65 kg; Height 5 ft. 0 ss in. ; Pain 10/10; 12:00 BP 103 / 62; Pulse 79; Resp 16; Pulse Ox 99% ; me1 13:00 BP 97 / 51; Pulse 80; Resp 16; Pulse Ox 99% ; me1 14:00 BP 107 / 58; Pulse 81; Resp 16; Pulse Ox 100% ; me1 15:00 BP 135 / 79; Pulse 73; Resp 15; Temp 98.4; Pulse Ox 100% ; me1 08:26 Body Mass Index 35.15 (81.65 kg, 152.4 cm) ss 08:26 Pain Scale: Adult ss ED Course: 08:01 Patient arrived in ED. im 08:02 Aubrey Godfrey MD is Attending Physician. rt 08:29 Triage completed. ss 08:29 Arm band placed on right wrist. ss 09:37 US Transvaginal Ob In Process Unspecified. EDMS 09:39 Pelvis Complete In Process Unspecified. EDMS 09:44 Patient moved back from ultrasound. ap3 09:48 Taylor Cabral, RN is Primary Nurse. ap3 09:49 Patient has correct armband on for positive identification. Bed in low position. Call ap3 light in reach. Side rails up X 1. Adult w/ patient. Provided Education on: call light education . 10:01 Initial lab(s) drawn, by me, sent to lab. Urine collected: clean catch specimen, clear. ap3 Inserted saline lock: 22 gauge in right antecubital area, using aseptic technique. Blood collected. Flushed with 10 mL NS. 12:08 Report given to RANJITH Peña. ap3 12:15 No provider procedures requiring assistance completed. me1 15:03 Abdomen Wo Cont In Process Unspecified. EDMS 15:30 IV discontinued, intact, bleeding controlled, No redness/swelling at site. Pressure me1 dressing applied. Administered Medications: No medications were administered Medication: 09:44 VIS not applicable for this client. ap3 Outcome: 15:25 Discharge ordered by . rt 15:30 Discharged to home ambulatory, me1 15:30 Condition: stable 15:30 Discharge instructions given to patient, significant other, Instructed on discharge instructions, follow up and referral plans. Demonstrated understanding of instructions, follow-up care, 15:43 Patient left the ED. me1 Signatures: Dispatcher [employer] EDYesenia James RN RN Taylor Cabral RN RN ap3 Aubrey Godfrey MD MD rt Rachel Sloan Michelle, RN RN me1 Corrections: (The following items were deleted from the chart) 08:29 08:29 Allergies: No Known Allergies; ss ss
--- NOTE | 2024-01-31 15:25 | EDPHYS ---
Physician Documentation [facility] Name: Raquel Sim Age: 34 yrs Sex: Female : 1990 Arrival Date: 01/31/2024 Time: 07:59 Bed 24 Private MD: ED Physician Aubrey Godfrey HPI: 01/30 08:36 This 34 yrs old Female presents to ER via Ambulatory with complaints of Abdominal Pain, rt 8 weeks . 08:36 Patient who is 8 weeks at the assisted fertility presents to the ED with a rt sharp right lower quadrant pain starting about 2 hours prior to arrival. Patient denies nausea, vomiting. Patient did have a IUP confirmed on ultrasound. 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 Denies other acute complaints at this time, symptoms are moderate in severity, no other aggravating alleviating factors.. 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 - Infectious Disease History:: Denies. - Social history:: Smoking status: Patient denies any tobacco usage or history of. - Family history:: not pertinent. ROS: 08:36 Constitutional: Negative for fever, chills, and weight loss, Cardiovascular: Negative rt for chest pain, palpitations, and edema, Respiratory: Negative for shortness of breath, cough, wheezing, and pleuritic chest pain, MS/Extremity: Negative for injury and deformity, Skin: Negative for injury, rash, and discoloration, Neuro: Negative for headache, weakness, numbness, tingling, and seizure, 08:36 Abdomen/GI: Positive for abdominal pain, Negative for nausea and vomiting, Exam: 08:36 Constitutional: This is a well developed, well nourished patient who is awake, alert, rt and in no acute distress. Head/Face: Normocephalic, atraumatic. Chest/axilla: Normal chest wall appearance and motion. Nontender with no deformity. No lesions are appreciated. Cardiovascular: Regular rate and rhythm with a normal S1 and S2. No gallops, murmurs, or rubs. Normal PMI, no JVD. No pulse deficits. Respiratory: Lungs have equal breath sounds bilaterally, clear to auscultation and percussion. No rales, rhonchi or wheezes noted. No increased work of breathing, no retractions or nasal flaring. Skin: Warm, dry with normal turgor. Normal color with no rashes, no lesions, and no evidence of cellulitis. MS/ Extremity: Pulses equal, no cyanosis. Neurovascular intact. Full, normal range of motion. Neuro: Awake and alert, GCS 15, oriented to person, place, time, and situation. Cranial nerves II-XII grossly intact. Motor strength 5/5 in all extremities. Sensory grossly intact. Cerebellar exam normal. Normal gait. 08:36 Abdomen/GI: Tenderness to the right lower quadrant with mild guarding, no rebound, distention, no costovertebral angle tenderness, Vital Signs: 08:26 Pulse 86; Resp 17; Temp 98.2(TE); Pulse Ox 100% on R/A; Weight 81.65 kg; Height 5 ft. 0 ss in. ; Pain 10/10; 12:00 BP 103 / 62; Pulse 79; Resp 16; Pulse Ox 99% ; me1 13:00 BP 97 / 51; Pulse 80; Resp 16; Pulse Ox 99% ; me1 14:00 BP 107 / 58; Pulse 81; Resp 16; Pulse Ox 100% ; me1 15:00 BP 135 / 79; Pulse 73; Resp 15; Temp 98.4; Pulse Ox 100% ; me1 08:26 Body Mass Index 35.15 (81.65 kg, 152.4 cm) ss 08:26 Pain Scale: Adult ss MDM: 08:31 Medical Screening Exam initiated rt 17:17 Differential Diagnosis Heterotopic , ovarian cyst, appendicitis, rt pyelonephritis. Data reviewed: vital signs, nurses notes, lab test result(s), radiologic studies. Test considered but Not performed: CT: Patient is 8 weeks , able to obtain MRIs to rule out appendicitis, CT scan not indicated. Counseling: I had a detailed discussion with the patient and/or guardian regarding the historical points, exam findings, and any diagnostic results supporting the discharge/admit diagnosis, lab results, radiology results, the need for outpatient follow up, to return to the emergency department if symptoms worsen or persist or if there are any questions or concerns that arise at home. Response to treatment: the patient's symptoms have markedly improved after treatment. 01/30 08:35 Order name: Abo/rh Typing; Complete Time: 10:46 rt 01/30 08:35 Order name: Basic Metabolic Panel; Complete Time: 10:46 rt 01/30 08:35 Order name: CBC with Diff; Complete Time: 10:15 rt 01/30 08:35 Order name: Quantitative Hcg; Complete Time: 10:46 rt 01/30 08:35 Order name: Urinalysis w/ reflexes; Complete Time: 10:15 rt 01/30 08:35 Order name: LFT's; Complete Time: 10:46 rt 01/30 08:35 Order name: US Transvaginal Ob; Complete Time: 10: rt 01/30 09:27 Order name: Pelvis Complete; Complete Time: 10: EDMS 01/30 15:03 Order name: Abdomen Wo Cont; Complete Time: 15: EDMS 01/30 08:35 Order name: IV Saline Lock; Complete Time: 10: rt 01/30 08:35 Order name: Labs collected and sent; Complete Time: 10: rt 01/30 08:35 Order name: NPO; Complete Time: 09:45 rt Administered Medications: No medications were administered Disposition Summary: 01/31/24 15:25 Discharge Ordered Notes: Location: Home rt Problem: new rt Symptoms: have improved rt Condition: Stable rt Diagnosis - Abdominal pain in the first trimester rt Followup: rt - With: Private Physician - When: Tomorrow - Reason: Discharge Instructions: - Discharge Summary Sheet rt - Abdominal Pain During rt Forms: - Medication Reconciliation Form rt - Antibiotic Education rt - Prescription Opioid Use rt - Patient Portal Instructions rt - Leadership Thank You Letter rt Signatures: Dispatcher [employer] Yesenia Ladd RN RN ss [place], Ryan, MD MD rt Corrections: (The following items were deleted from the chart) 08:29 08:29 Allergies: No Known Allergies; [facility] 15:03 10:43 Abdomen ordered. EDMS EDMS
[2024-01-31 16:51] VITALS: O2SAT 100
[2024-01-31 16:52] VITALS: BP 135/79; TEMP 98.4
== END 2024-01-31 15:43 | disposition home or self-care (01) ==
LOC: ER 07:59
DX: O26.891 Other specified pregnancy related conditions, first trimester (principal); Z3A.08 8 weeks gestation of pregnancy
CPT/HCPCS: 36415; 74181; 76817; 76856; 80048; 80076; 81003; 84702; 85025; 86900; 86901; 99284